=== PATIENT | female | born 1965 | race Caucasian/White ===

== ENCOUNTER 2022-11-30 07:17 | Outpatient (REF) | payer MEDICARE, MEDICAID, SELFPAY ==
--- NOTE | ~2022-11-30 | XR_ITS ---
EXAMINATION: XR KNEE, LEFT CLINICAL INFORMATION: Left knee pain. COMPARISON: None available. TECHNIQUE: Three views of the left knee. FINDINGS: Bones have normal alignment. No acute fracture, subluxation or joint effusion. Tricompartmental osteophyte formation. There is mild narrowing of patellofemoral joint space and tkrw-xo-kbczzyxb narrowing of the medial aspect of the medial tibiofemoral joint space. There appear to be a few small intra-articular ossific bodies. XR/XR knee LT 3V IMPRESSION: * No acute osseous injury at the left knee. * Tricompartmental osteoarthritis of the left knee. The joint degeneration is bolo-it-jwwjrkkd at the medial tibiofemoral compartment and mild at other compartments.
== END 2022-11-30 07:18 | disposition home or self-care (01) ==
LOC: HO.HOSX 07:17
PROVIDERS: Visit Provider Orthopaedic Surgery
DX: M17.0 Bilateral primary osteoarthritis of knee (principal); Z79.899 Other long term (current) drug therapy
CPT/HCPCS: 73562; 99212

== ENCOUNTER 2022-11-30 14:12 | Outpatient (AMB) | payer MEDICARE, MEDICAID, SELFPAY ==
--- NOTE | 2022-11-30 14:31 | MHC.OFFVIS ---
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 Pandey is a 57-year-old white female who presents with complaints of progressively worsening bilateral knee pains and giving way. She describes her pain as sharp in nature. Most of the pain is along the medial aspect of her knees. She has done physical therapy exercises which aggravated her pain. Her symptoms have gotten worse over the last year in spite of continued non operative treatments. She has tried Tylenol and anti-inflammatory medicines which gave her minimal relief. She has also tried tramadol which gives her fairly good relief. She would like to avoid surgery for as long as possible. The patient states that both of her knees will give out several times per day. Allergies bee stings Allergy (Uncoded 11/30/22 14:32) Anaphylaxis Medication List - Last Reconciled 11/30/22 by Faisal Schroeder MD albuterol sulfate 90 mcg/actuation (Ventolin HFA) 2 puffs inhalation Q4H PRN cetirizine 10 mg PO DAILY cholecalciferol (vitamin D3) 50 mcg PO DAILY duloxetine 60 mg PO BID epinephrine 0.3 mL IM ONCE PRN lamotrigine 100 mg PO BID lamotrigine 50 mg PO DAILY levothyroxine 75 mcg PO DAILY loratadine 10 mg PO DAILY montelukast 10 mg PO DAILY omeprazole 20 mg PO BID sennosides (senna) 34.4 mg PO BID PFSH Surgical History (Updated 11/30/22 @ 14:37 by Ngoc Estes CMA) History of total right knee replacement S/P left knee arthroscopy Physical Exam Vital Signs: BMI result Body Mass Index 39.0 Const Other: Well-nourished well-developed very friendly female awake alert and oriented x3 in no acute distress Extrem Other: Bilateral lower extremity examination shows good capillary refill, no skin lesions noted, normal sensation light touch Bilateral knee examination shows a minimal effusion, minimal crepitus with range of motion, tenderness along her medial joint lines, positive Yoli's test Results Reviewed Results Reviewed: X-rays of the patient's left knee show moderate diffuse joint space narrowing, Assessment & Plan Assessment & Plan (1) Arthritis of both knees: Code(s): M17.0 - Bilateral primary osteoarthritis of knee Plan Ms. Stone presents with bilateral knee pains and mechanical symptoms due to degenerative joint disease as well as possible tearing of her medial menisci. I had a lengthy discussion with the patient regarding the treatment options. She wishes to hold off on surgery for as long as possible. I agree with this plan. I did refill her prescription for tramadol. I also had her fitted for bilateral knee braces. I do feel that the knee braces are a medical necessity to help prevent injury during her episodes of instability. The patient will follow up with me on an as-needed basis should her symptoms not plateau at an unacceptable level over the next few months. Feel free to call me at any time should questions regarding her orthopedic management arise. I spent 22 minutes in reviewing the patient's records and imaging studies, seeing the patient and documenting in the medical record. Orders: Orders XR knee LT 3V Today M25.562 - Pain in left knee Medications: New tramadol 100 mg (2 x 50 mg) PO Q6H PRN 120 tabs 0RF pain Coding Level of Care Code Est Pt Level 2 (36432) Diagnoses Arthritis of both knees M17.0
[2022-11-30 14:38] VITALS: BMI 39.0
== END 2022-11-30 15:30 | disposition home or self-care (01) ==
PROVIDERS: PCP Family Medicine; Visit Provider Orthopaedic Surgery
DX: M17.0 Bilateral primary osteoarthritis of knee (principal)
CPT/HCPCS: 99212

== ENCOUNTER 2023-06-14 15:23 | Outpatient (REF) | payer MEDICARE, MEDICAID, SELFPAY | END 2023-06-14 15:24 | disposition home or self-care (01) | LOC: HO.HOSX 15:23 | PROVIDERS: Visit Provider Orthopaedic Surgery | DX: Z13.89 Encounter for screening for other disorder (principal) ==

== ENCOUNTER 2024-03-20 10:44 | Outpatient (REF) | payer MEDICARE, MEDICAID, SELFPAY | END 2024-03-20 10:45 | disposition home or self-care (01) | LOC: HO.HOSX 10:44 | PROVIDERS: Visit Provider Orthopaedic Surgery | DX: M25.561 Pain in right knee (principal) | CPT/HCPCS: 99212 ==

== ENCOUNTER 2024-03-20 14:43 | Outpatient (AMB) | payer MEDICARE, MEDICAID, SELFPAY ==
[2024-03-20 14:47] VITALS: BMI 39.0
--- NOTE | 2024-03-20 14:47 | A.OFFVIS_ITS ---
Vital Signs 03/20/24 14:47 Height 5 ft 2 in Weight 213 lb BMI 39.0 Intake Visit Reasons: Right knee pain Intake Note: Margarita is a 57-year-old female who presents with complaints of intermittent discomfort along the anterior aspect of her right knee. She did undergo right total knee replacement surgery several years ago. She denies any fevers or chills. She continues with her home exercise program. She denies any locking or giving way. Allergies bee stings Allergy (Uncoded 03/20/24 14:47) Anaphylaxis Medication List - Last Reconciled 03/21/24 by Faisal Schroeder MD albuterol sulfate 90 mcg/actuation (Ventolin HFA) 2 puffs inhalation Q4H PRN cetirizine 10 mg PO DAILY cholecalciferol (vitamin D3) 50 mcg PO DAILY duloxetine 60 mg PO BID epinephrine 0.3 mL IM ONCE PRN gabapentin 300 mg PO BID ibuprofen 800 mg PO TID PRN lamotrigine 100 mg PO BID lamotrigine 50 mg PO DAILY levothyroxine 75 mcg PO DAILY loratadine 10 mg PO DAILY montelukast 10 mg PO DAILY omeprazole 20 mg PO BID sennosides (senna) 34.4 mg PO BID tramadol 100 mg (2 x 50 mg) PO Q6H PRN PFSH Surgical History (Updated 11/30/22 @ 14:37 by Ngoc Estes CMA) S/P left knee arthroscopy History of total right knee replacement Physical Exam Vital Signs: BMI result Body Mass Index 39.0 Const Other: Well-nourished well-developed very friendly female awake alert and oriented x3 in no acute distress Extrem Other: Bilateral lower extremity examination shows good capillary refill, no skin lesions noted, normal sensation light touch Right knee examination shows that the surgical incision is well healed, no erythema, full active extension and flexion to 120 degrees, her patella tracks well, no instability, mild tenderness to palpation along her incision Assessment & Plan Assessment & Plan (1) Right knee pain: Code(s): M25.561 - Pain in right knee Category: Medical Plan Ms. Pandey presents with continued discomfort in her right knee after undergoing right total knee replacement surgery possibly due to scar tissue formation versus incisional sensitivity. Thus, I will refer her to Dr. Ecsalante in our pain management department here at [facility] for possible nerve block injections. The patient does know to take antibiotics before any dental work. She will contact me prior to her follow-up appointment in 3 months should her symptoms worsen in any way. Feel free to call me at any time should questions regarding her orthopedic management arise. I spent 21 minutes in reviewing the patient's records and imaging studies, seeing the patient and documenting in the medical record. Orders: Orders XR knee LT 3V 03/20/24 M25.562 - Pain in left knee XR knee RT 3V 03/20/24 M25.561 - Pain in right knee Referrals Pain Management Referral M25.561 - Pain in right knee Coding Level of Care Code Est Pt Level 3 (70233) Complex EM visit Add On G2211 Diagnoses Right knee pain M25.561
--- OUTSIDE RECORDS SUMMARY | 2024-03-20 14:47 | XMS_ITS | Data Portability ---
Author Organization [place] [facility] [address] [place] Address [address] [place] [address] Care Team Providers Care Loan Teller Name Role Phone NICOLAS MULLINS Primary Care Provider Assessment Encounter Date Assessment Date Assessment LastModified by Organization Details LastModified Time 07/02/2022 07/02/2022 Ms. Pandey presents with progressively worsening left knee pain due to end-stage degenerative joint disease. I had a lengthy discussion with the patient regarding the treatment options. At this point she has failed continued nonoperative treatments. The risks and benefits of left total knee replacement surgery were discussed at length with the patient. We had a discussion regarding implants and bearing options. We have a detailed discussion of the advantages and limitations of the specific implant designs, materials and bearing surfaces. All questions were answered to the patient's satisfaction. The patient wishes to proceed with surgery. Because of patient's symptoms are severe and intractable we will schedule her surgery for as soon as possible. Coronavirus precautions will be taken. I will see the patient back 1 week prior to her surgery to answer any final questions that she might have. The patient will follow-up as instructed. [email or web address] Not available 07/02/2022 16:09:28 10/18/2022 10/18/2022 Patient presented to the office with hopes of seeing Dr. Gallegos. She was given Dr. Gallegos's contact as being [facility]. She was offered evaluation and assessment in this orthopedic office but declined. She wishes to reach out to Dr. Gallegos for follow-up. There will be no charge for today's office encounter. There were no evaluation or management services provided today. [email or web address] Not available 10/19/2022 09:00:34 03/09/2024 03/09/2024 HPI : Patient is here for about 3-year follow-up from right revision total knee replacement. She is coming in because she reports that sometimes it is difficult to lift her leg to get into the car. She reports some locking in the knee. When she described the motion that she is having issues with there is really hip motion. She recognizes this now. The knee is moving mostly seamlessly. There is occasional slight catching but this is not particularly painful. Physical Exam : Patient is well nourished, well-developed, in no acute distress, with appropriate mood and affect. The patient is oriented to time, place, and person. Respirations are even and unlabored. There is no inguinal adenopathy. Examination of the contralateral knee shows normal range of motion, strength, no tenderness, and intact skin. The affected limb is well-perfused, with well healed skin incision. The patient demonstrates good knee motion, stability, and strength. The knee moves from 0-130 degrees. The alignment of the knee is neutral. Muscle strength is normal. Pedal pulses are palpable. There is some pain with internal rotation of the right hip. Assessment/Plan : This patient is functioning well 3 years after right revision total knee replacement. Continue knee conditioning exercises. Aeox-xtw-yuqwvst medications as needed. Ultimate failure may occur due to mechanical wear, loosening or breakage. Follow-up is recommended to assess for the possibility of failure. We did discuss that she likely has hip issues. If this continues she is welcome to be evaluated by her team for her right hip. She states she is seeing somebody else for her right hip. She can follow-up with me in 1 year from now with repeat x-rays of the right knee at that time. Not available 03/09/2024 15:05:30 Plan of Treatment Reminders Order Date Submit Date Provider Last Modified By Organization Details Last Modified Time Details Appointments FOLLOW UP 2024 02:00P Haroon Aden MD Not available Not available Not available Lab None recorded . Referral None recorded . Procedures None recorded . Surgeries None recorded . Imaging XR, knee, 3 view 2023 024 [email or web address] [facility], [address], [address], [place], [address], 03/12/2024 06:48:31 Medication Orders None recorded . Patient TargetsNo targets recorded. Patient Instructions Encounter Date Encounter Id Patient Instructions Last Modified By Organization Details Last Modified Time 03/09/2024 [id number] AP, lateral, patellar view of the right knee demonstrate a right revision total knee replacement with components in appropriate position without any signs of hardware related complications. Not available 03/09/2024 15:05:42 Reason for Referral None Reported. Problems Name Problem SNOMED Code Status Onset Date Resolution Date Notes Provider Name and Address Organization Details Recorded Time Osteoarthri tis of left knee joint 4326609863155 09 Active 2022 Faisal Schroeder MD [address], [place], [address], [place] [facility] 3 14:43:20 Arthritis of left knee 6903722521709 104 Active 2022 Faisal Schroeder MD [address], [place], [address], [place] [facility] 3 16:05:31 Pain of right knee joint 8089359292280 00 Active 2022 Faisal Schroeder MD [address], [place], [address], [place] [facility] 3 16:20:32 Pain of left knee joint 3127454467779 07 Active 2022 Faisal Schroeder MD [address], [place], [address], [place] [facility] 3 16:21:00 Problem Notes None recorded. Procedures Surgical History Date Name Laterality Status Provider Name and Address Organization Details Recorded Time Total knee arthroplasty completed Farzana Zhao [place] [facility] 07/02/2022 14:07:55 Imaging Results None recorded. Procedure Notes None recorded. Medical Equipment None Reported. Allergies Allergen ID Allergen Name Allergen Category Reaction Reaction Severity Criticality Documentation Date Start Date Code Code System Note Provider Name and Address Organization Details Recorded Time 1322 Substance with sulfonami de structure and antibacte rial mechanism of action (substanc e) medicatio n Not available Not available Not available 07/02/2022 80499 8003 SNOMED Farzana Zhao null, [place] [facility] 3 14:05:03 1323 Medicinal product containin g cephalosp huber and acting as antibacte rial agent (product) medicatio n Not available Not available Not available 07/02/2022 40052 9009 SNOMED Farzana Zhao null, [place] [facility] 3 14:05:13 1324 fentanyl medicatio n Not available Not available Not available 07/02/2022 4337 RxNorm Farzana Zhao null, [place] [facility] 3 14:05:23 1325 amiodaron e medicatio n Not available Not available Not available 07/02/2022 703 RxNorm Farzana Zhao null, [place] [facility] 3 14:05:30 1326 Dilaudid medicatio n Not available Not available Not available 07/02/2022 30603 3 RxNorm Farzana Zhao null, [place] [facility] 3 14:05:37 1327 trimethop rim medicatio n Not available Not available Not available 07/02/2022 34789 RxNorm Farzana Zhao null, [place] [facility] 14:05:51 Medications Name Sig Start Date Stop Date Status Note LastModified by Organization Details LastModified Time doxycycline hyclate 100 mg capsule active Not Available Not Available N ot Available cetirizine 10 mg tablet TAKE 1 TABLET (10 MG) BY MOUTH DAILY. active Not Available Not Available No t Available ibuprofen 800 mg tablet TAKE 1 TABLET BY MOUTH THREE TIMES A DAY NEEDED FOR PAIN active Not Available Not Available No t Available valacyclovi r 1 gram tablet TAKE 1 TABLET (1000 MG) ORALLY THREE TIMES A DAY FOR 7 DAYS 03/09 completed Not Available Not Available Not Available hydrocodone 5 mg-acetamin ophen 325 mg tablet TAKE 1 TABLET BY MOUTH 3 TIMES A DAY NEEDED FOR PAIN FOR 3 DAYS active Not Available Not Available No t Available senna 8.6 mg tablet TAKE 4 TABLETS BY MOUTH TWICE A DAY FOR 90 DAYS 03/09 completed Not Available Not Available Not Available ondansetron HCl 4 mg tablet TAKE 1 TABLET BY MOUTH EVERY 8 HOURS NEEDED FOR NAUSEA AND VOMITING FOR 4 DAYS 03/09 completed Not Available Not Available Not Available prednisone 20 mg tablet 40 MG (2 X 20 MG) ORALLY DAILY FOR 5 DAYS 03/09 completed Not Available Not Available Not Available topiramate 25 mg tablet PLEASE SEE ATTACHED FOR DETAILED DIRECTION S active Not Available Not Available No t Available tramadol 50 mg tablet TAKE 2 TABLETS BY MOUTH EVERY 6 HOURS NEEDED FOR PAIN active Not Available Not Available No t Available lamotrigine 25 mg tablet TAKE 1 TABLET BY MOUTH TWICE A DAY active Not Available Not Available No t Available levothyroxi ne 75 mcg tablet TAKE 1 TABLET (75 MCG) ORALLY DAILY active Not Available Not Available No t Available lorazepam 0.5 mg tablet TAKE 1 TABLET BY MOUTH ONCE A DAY NEEDED FOR AIR TRAVEL 03/09 completed Not Available Not Available Not Available amitriptyli ne 10 mg tablet 10 MG ORALLY THREE TIMES A DAY active Not Available Not Available No t Available baclofen 10 mg tablet TAKE 1 TABLET ORALLY THREE TIMES A DAY NEEDED FOR MUSCLE SPASM active Not Available Not Available No t Available benzonatate 100 mg capsule TAKE 1 CAPSULE BY MOUTH 3 TIMES A DAY NEEDED FOR COUGH active Not Available Not Available No t Available gabapentin 300 mg capsule TAKE 1 CAPSULE BY MOUTH TWICE A DAY active Not Available Not Available No t Available omeprazole 20 mg capsule,del ayed release TAKE 1 CAPSULE BY MOUTH TWICE A DAY active Not Available Not Available No t Available montelukast 10 mg tablet TAKE 1 TABLET (10 MG) BY MOUTH DAILY. active Not Available Not Available No t Available mupirocin 2 % topical ointment APPLY TOPICALLY TWICE A DAY active Not Available Not Available No t Available epinephrine 0.3 mg/0.3 mL injection, auto-inject or INJECT 1 PEN INTRAMUSC ULARLY ONE TIME FOR ANAPHYLAX IS AND CALL 911. MAY REPEAT ONE TIME active Not Available Not Available No t Available ibuprofen 600 mg tablet 600 MG ORALLY THREE TIMES A DAY NEEDED FOR PAIN active Not Available Not Available No t Available methylpredn isolone 4 mg tablets in a dose pack TAKE 6 TABLETS ON DAY 1 DIRECTED ON PACKAGE AND DECREASE BY 1 TAB EACH DAY FOR A TOTAL OF 6 DAYS active Not Available Not Available No t Available albuterol sulfate HFA 90 mcg/actuati on aerosol inhaler TAKE 2 PUFFS BY MOUTH EVERY 4 HOURS NEEDED active Not Available Not Available No t Available fluticasone propionate 50 mcg/actuati on nasal spray,suspe nsion 1-2 SPRAYS EACH NOSTRIL EVERY DAY 03/09 completed Not Available Not Available Not Available lamotrigine 100 mg tablet TAKE 1 TABLET BY MOUTH TWICE A DAY active Not Available Not Available No t Available loratadine 10 mg tablet TAKE 1 TABLET BY MOUTH EVERY DAY active Not Available Not Available No t Available diazepam 5 mg tablet PLEASE SEE ATTACHED FOR DETAILED DIRECTION S 03/09 completed Not Available Not Available Not Available oxycodone 5 mg tablet PLEASE SEE ATTACHED FOR DETAILED DIRECTION S active Not Available Not Available No t Available topiramate 50 mg tablet TAKE 1 TABLET BY MOUTH TWICE A DAY active Not Available Not Available No t Available duloxetine 60 mg capsule,del ayed release TAKE 1 CAPSULE BY MOUTH TWICE A DAY active Not Available Not Available No t Available Symbicort 80 mcg-4.5 mcg/actuati on HFA aerosol inhaler INHALE 2 PUFFS BY MOUTH TWICE A DAY FOR 90 DAYS 03/09 completed Not Available Not Available Not Available cholecalcif shiela (vitamin D3) 50 mcg (2,000 unit) capsule TAKE 1 CAPSULE BY MOUTH EVERY DAY active Not Available Not Available No t Available GaviLyte-G 236 gram-22.74 gram-6.74 gram-5.86 gram oral solution 240 ML ORALLY ONCE USE DIRECTED active Not Available Not Available No t Available lidocaine 5 % topical ointment APPLY TOPICALLY 4 TIMES DAILY NEEDED FOR PAIN 03/09 completed Not Available Not Available Not Available Wixela Inhub 250 mcg-50 mcg/dose powder for inhalation TAKE 1 PUFF BY MOUTH TWICE A DAY active Not Available Not Available No t Available Breztri Aerosphere 160 mcg-9mcg-4. 8mcg/actuat ion HFA aerosol inhaler TAKE 2 PUFFS BY MOUTH TWICE A DAY active Not Available Not Available No t Available Trelegy Ellipta 200 mcg-62.5 mcg-25 mcg powder for inhalation TAKE 1 PUFF BY MOUTH EVERY DAY active Not Available Not Available No t Available BinaxNOW COVID-19 Ag Self Test kit DIRECTED 03/09 completed Not Available Not Available Not Available Vitals Date Recorded Body height Body mass index (BMI) Body weight Provider Name and Address Organization Details Last Updated DateTime 10/18/2022 152.4 cm 41.8 kg/m2 [address] [place] [facility] 10/18/2022 14:54:43 Date Recorded Body height Body mass index (BMI) Body weight Provider Name and Address Organization Details Last Updated DateTime 07/02/2022 152.4 cm 41.8 kg/m2 [address]4527.[address] [place] [facility] 07/02/2022 14:06:21 Social History None recorded. Functional Status None recorded. Mental Status None recorded. Family History Relationship Description Onset Age of this Age Resolved Age Notes LastModified by Organization Details LastModified Time Father Heart disease [email or web address] Not available 2022 14:07:19 Mother Heart disease [email or web address] Not available 2022 14:07:29 Brother Heart disease [email or web address] Not available 2022 14:07:34 Medical History Condition Response Bleeding Disorder Y Asthma Y Gynecological HistoryNo gynecological history recorded. Obstetrics History GPAL:G 0 P 0 0 0 0 Past Encounters Encounter ID Performer Location Encounter Start Date Encounter Closed Date Diagnosis/Indication Diagnosis SNOMED-CT Code Diagnosis ICD10 Code [id number] MD GERRY Toro [address] [facility] [address] [place] [address] 07/02/2022 13:58:47 07/02/2022 14:52:34 Osteoarthritis of left knee joint [id number] 68018 M17.12 [id number] MD GERRY Zuñiga [address] [facility] [address] [place] [address] 10/18/2022 14:41:29 10/19/2022 09:00:49 [id number] MD GERRY Zuñiga [address] [facility] [address] [place] [address] 03/09/2024 14:29:57 03/09/2024 15:10:38 History of right total knee replacement [id number] 515567 Z96.651 Surgical follow-up 92603 4000 Z47.1 Z96.651 Health Concerns Section Related Observation LastModified by Organization Detai ls LastModified Time None Recorded Concern Status LastModified by Organization Details LastModified Time None Recorded Advance Directives Directive None Recorded Payers Encounter Date Sequence Insurance Name Policy Number Policy Castellon Covered Member ID Castellon Member ID Guarantor Name 07/02/2022 1 [place] [employer] Margarita A Stone [id number] Margarita Stone 07/02/2022 2 [place] Margarita A Stone [id number] Margarita Stone 10/18/2022 1 [place] Margarita A Stone [id number] Margarita Stone 10/18/2022 2 [place] Margarita A Stone [id number] Margarita Stone 03/09/2024 1 [place] [employer] Margarita A Stone [id number] Margarita Stone 03/09/2024 2 [place] Margarita A Stone [id number] Margarita Stone Notes Date Note Type Note Provider Name and Address Organization Details Recorded Time 07/02/2022 text/html The patient presents with complaints of progressively worsening left knee pain. She describes her pain as sharp and severe in nature, 10 out of 10. Her pain has gotten worse over the last few years in spite of continued nonoperative treatments. She did undergo right total knee replacement surgery on February 09, 2019. She subsequently underwent revision right total knee replacement surgery after loosening her total knee arthroplasty while jumping on a trampoline. She reports minimal discomfort in her right knee. She describes her left knee pain as sharp and severe in nature. She has had multiple injections given into her left knee. The most recent injection gave her minimal relief. She has also done physical therapy for 12 weeks over the last 6 months which aggravated her pain. She has tried Tylenol, anti-inflammatory medicines and tramadol which gave her minimal relief. The patient has difficulty walking even short distances because of her pain. At this point her left knee pain is interfering with her activities of daily living and her ability to sleep well through the night. Faisal Schroeder MD [address] [place] [address], [address], [place] [facility] 07/02/2022 16:09:35 OBGyn Episode No OBEpisode recorded.
--- OUTSIDE RECORDS SUMMARY | 2024-03-20 14:47 | XMS_ITS | Continuity of Care Document ---
Author Organization [facility] Address [address] [place], [place] [address], [address] [place] [address]- Care Team Providers Care Coating Inspector Name Role Phone Fe Mcnally DO [facility] Care Phys[id number]): [facility]24[facility]23 - 02/24/24 [facility] [address] [place] [address] Drive [address] [place], [place] [address] Attending Physician: Gianni PALUMBO, Faraz Lomeli Referring Physician: Jerri Carmona NP Encounter Type: Pre Office Visit Allergies, Adverse Reactions, Alerts Substance Criticality Severity Reaction Reaction Severity Status amiodarone Amoxycillin allergy Active ciprofloxacin Active Bee Stings Active Flagyl can't talk or h old head up Active metronidazole Active sulfADIAZINE Active cephalosporins Activ e Dilaudid Active Lyrica Active trimethoprim Active vancomycin Active fentanyl Active morphine black & blue Active Bactrim itchy Active Medications Ativan 1 mg oral tablet 1 tablet = 1 mg, By Mouth, 3 times a day, prn spasm, # 12 tablet, 0 Refills, Maintenance, 11/19/15 5:09:02 PM EDT Start Date: 11/19/15 Stop Date: 11/22/15 Status: Ordered Quantity: 12.0 Unit: tablet Repeat number: 1 Cane See Instructions, # 1 each, Refills 0, Tot. Refills 0, Maintenance, Use Cane as Directed for your hip contusion, 11/19/15 5:13:34 PM EDT, Compound Start Date: 11/19/15 Status: Ordered Quantity: 1.0 Unit: each Repeat number: 1 Cymbalta 60 mg oral enteric coated capsule 1 capsule = 60 mg, By Mouth, 2 times a day, 0 Refills, Maintenance, 12/24/16 2:20:39 PM EDT Start Date: 12/24/16 Status: Ordered Repeat number: 1 docusate sodium 100 mg oral tablet 1 tablet = 100 mg, By Mouth, 2 times a day, PRN for constipation, # 100 tablet, 0 Refills, Maintenance, 04/28/12 2:02:25 PM EST, Tablet Start Date: 04/28/12 Status: Ordered Quantity: 100.0 Unit: tablet Repeat number: 1 Gabapentin By Mouth, 0 Refills, Maintenance, 12/14/22 3:22:00 PM EDT, Partial fill upon patient request if the prescription is for a schedule II opioid drug. Start Date: 12/14/22 Status: Ordered Repeat number: 1 Hydrochlorothiazide = 25 mg, By Mouth, Daily, 0 Refills, Maintenance, 04/28/12 6:45:11 PM EST Start Date: 04/28/12 Status: Ordered Repeat number: 1 Knee Immobilizer See Instructions, # 1 units, Maintenance, R knee injury, 10/27/14 11:45:15 AM EDT, Compound Start Date: 10/27/14 Status: Ordered Quantity: 1.0 Unit: Units Repeat number: 1 lamotrigine 100 mg oral tablet 1 tablet = 100 mg, By Mouth, 2 times a day, # 180 tablet, 0 Refills, Maintenance, 04/28/12 1:57:32 PM EST, Tablet Start Date: 04/28/12 Status: Ordered Quantity: 180.0 Unit: tablet Repeat number: 1 lamotrigine 25 mg oral tablet 1 tablet = 25 mg, By Mouth, 2 times a day, # 180 tablet, 0 Refills, Maintenance, 04/28/12 1:58:10 PMEST, Tablet Start Date: 04/28/12 Status: Ordered Quantity: 180.0 Unit: tablet Repeat number: 1 levothyroxine 0.025 mg oral tablet 1 tablet = 25 mcg, By Mouth, Daily, 0 Refills, Maintenance, 12/14/22 3:22:00 PM EDT, Partial fill upon patient request if the prescription is for a schedule II opioid drug. Start Date: 12/14/22 Status: Ordered Repeat number: 1 Montelukast By Mouth, Daily, 0 Refills, Maintenance, 12/14/22 3:21:00 PM EDT, Partial fill upon patient request if the prescription is for a schedule II opioid drug. Start Date: 12/14/22 Status: Ordered Repeat number: 1 omeprazole 20 mg oral enteric coated capsule 1 capsule = 20 mg, By Mouth, Daily, # 30 capsule, 0 Refills, Maintenance, 04/28/12 1:58:47 PM EST, EC Capsule Start Date: 04/28/12 Status: Ordered Quantity: 30.0 Unit: capsule Repeat number: 1 traMADol 50 mg oral tablet 1 tablet = 50 mg, By Mouth, Every 4 hours, 0 Refills, Maintenance, 12/24/16 2:23:32 PM EDT Start Date: 12/24/16 Status: Ordered Repeat number: 1 Problem List Condition Confirmation Course Effective Dates Status H ealth Status Informant Bipolar disorder Confirmed Active Bursitis of left hip Confirmed Active Foot pain, right Confirmed Active H/O arthroscopic knee surgery Confirmed Active H/O hernia repair Confirmed Active Hx of repair of right rotator cuff Confirmed Active Hx of sleep apnea Confirmed Active Knee pain Confirmed Active Laparoscopic Cholecystectomy Confirmed Active Low back pain Confirmed Active Myofascial pain Confirmed Active Obese class II Confirmed Active Obesity (BMI 30-39.9) Confirmed Active Osteoarthritis Confirmed Active Social History Social History Type Response Smoking Status Never smoker entered on: 05/18/17 Sex Sex Representation Female (finding) Patient Care team information Care Team Personnel Name: Fe Mcnally DO Position: Reference Physician Member Role: PCP Address: [address] [place] [address] Internal Medicine MADDI Hernandez [address] [place] [address] Telecom: Care Team Related Persons Name: TONO ENRIQUEZ Insurance Providers Guarantor name: BOLA ENRIQUEZ Health Plan Information #: 2 Payer: [facility] MC[facility] ADV Member Number: [id number] Policy Number: NA Group Number: NA Health Plan Information #: 3 Payer: [employer] Member Number: [id number] Policy Number: NA Group Number: NA Health Plan Information #: 5 Payer: [facility] Member Number: [id number] Policy Number: NA Group Number: NA Health Plan Information #: 1 Payer: MEDICARE PART B OUTPT Member Number: [id number] Policy Number: NA Group Number: NA Health Plan Information #: 4 Payer: MEDICARE PART B OUTPT Member Number: [id number] Policy Number: NA Group Number: NA
--- OUTSIDE RECORDS SUMMARY | 2024-03-20 14:47 | XMS_ITS | Continuity of Care Document ---
Author Organization [facility] Address [address] [place], [place] [address], [address] [place] [address]- Care Team Providers Care Heliotherapist Name Role Phone Fe Mcnally DO Primary Care Physician Encounter [facility] Date(s): 01/25/24 - 02/24/24 [facility] [address] [place] [address] Drive [address] [place], [place] [address] Attending Physician: Jarrod Mckeon Admitting Physician: Jarrod Mckeon Referring Physician: AdmtrJarrod Encounter Type: Triage Allergies, Adverse Reactions, Alerts Substance Criticality Severity Reaction Reaction Severity Status amiodarone Amoxycillin allergy Active ciprofloxacin Active metronidazole Active sulfADIAZINE Active trimethoprim Active vancomycin Active fentanyl Active morphine black & blue Active cephalosporins Activ e Flagyl can't talk or h old head up Active Dilaudid Active Bactrim itchy Active Bee Stings Active Lyrica Active Medications Ativan 1 mg oral tablet [...] Position: Reference Physician Member Role: PCP Address: [address] [place] [address] Internal Medicine [address] Telecom: Care Team Related Persons Name: TONO ENRIQUEZ Insurance Providers Guarantor name: BOLA MINA Health Plan Information #: 1 Payer: MEDICARE PART B OUTPT Member Number: NA Policy Number: NA Group Number: NA Health Plan Information #: 2 Payer: [employer] Member Number: NA Policy Number: NA Group Number: NA
--- OUTSIDE RECORDS SUMMARY | 2024-03-20 14:47 | XMS_ITS | Data Portability ---
Author Organization [place] [facility] Quality Assurance Specialist Address [address] [place] [address] Assessment Encounter Date Assessment Date Assessment LastModified by Organization Details LastModified Time 04/22/2023 04/22/2023 Reason for Encounter Removeable Prosthesis Encounter Date: 04/22/2023 Problems Problems reviewed by: Christina Mello Problems reviewed on: 04/22/2023 10:07 am Allergies No known drug allergies Allergies reviewed by: Christina Mello Allergies reviewed on: 04/22/2023 10:07 am Medications No medications reported Completed Procedures D0140 - Limited oral evaluation - problem focused Completed Procedures (cont.) Pt presents for limited exam.Medical and dental hx reviewed. ?? CC. : severe constant pain in lower RIGHT BACK teeth, pointing to tooth # 32 that was rec to be extracted. PANO Interpreted showing mesial impacted, partially erupting?? Clinical exam reveals only mesial cusp erupting. Tender to palpation and percussion. Possible acute pericorornitis Rec following up on referral with MK for?? EXT. Pt wants to have the teeth extracted.Pt was dimissed in good condition with no complications from today's Tx. ?? ALSO COMPLETED WASH IMP FOR UPPER CD, UNABLE TO POSITION LOWER BITE BLOCK TO REGISTER THE BITE. PT WILL RETURN AFTER EXT FOR BITE REG. CASE STORED IN CABINET. Additional Comments: Explained and discussed conditions, findings, and plan of care. Follow-Up/Next Visit: Next appointment date is 07/06/2023 at 10:00 AM Treating Provider: Evelyn STOKES Reason For Encounter: Restorations Treating Provider DIVYA Martinez I attest that the treatment rendered today is completed and treatment met the standard of care. , 12:14 PM. [id number] Not available 04/25/2023 11:02:54 07/06/2023 07/06/2023 Reason for Encounter Removeable Prosthesis Encounter Date: 07/06/2023 Allergies No known drug allergies Medications No medications reported Completed Procedures D5212 - Mandibular partial denture - resin base (including any conventional clasps, rests and teeth) Teeth: 18, 19, 30, 31 Stages: Three D5110 - Complete denture - maxillary Stages: Three Completed Procedures (cont.) Patient presents for scheduled visit for bite registration.? Since last visit: Medical alert - No change ? Medications - No change ? Allergies - No change?? H&N exam - WNL, Extraoral and Intraoral soft tissues - WNL, OHI provided verbally. ?? Completel ?? edentulous maxilla, partilly edentulous mandible ? P: Bite registration taken with bill mezae. Midline recorded, smile line, and canine lines.? pt selected Shade:A2 pt dismissed in stable condition?? NV: Wax Try-in ? Additional Comments: Explained and discussed conditions, findings, and plan of care. Follow-Up/Next Visit: Next appointment date is 08/03/2023 at 10:30 AM Treating Provider: Evelyn STOKES Reason For Encounter: Recare Adult Treating Provider DIVYA Martinez I attest that the treatment rendered today is completed and treatment met the standard of care. , 11:48 AM. [id number] Not available 07/13/2023 11:56:41 08/03/2023 08/03/2023 Reason for Encounter Removeable Prosthesis Encounter Date: 08/03/2023 Allergies No known drug allergies Medications No medications reported Completed Procedures D5212 - Mandibular partial denture - resin base (including any conventional clasps, rests and teeth) Teeth: 18, 19, 30, 31 Stages: Four D5110 - Complete denture - maxillary Stages: Four Completed Procedures (cont.) Patient presents for scheduled visit for a wax try-in.? H&N exam - WNL, Extraoral and Intraoral soft tissues - WNL, OHI provided verbally. ? Completely edentulous maxilla, partially edentulous mandible? Wax Try-in assessment, occlusion good, midline, good, pt likes the overall esthetics and look, pt did not want any changes done.?? Prosthetic consent reviewed and obtained.?? pt dismissed in stable condition?? Additional Comments:NV DELIVERY Explained and discussed conditions, findings, and plan of care. Follow-Up/Next Visit: Next appointment date is 08/30/2023 at 09:30 AM Treating Provider: Evelyn STOKES Reason For Encounter: Removeable Prosthesis Treating Provider DIVYA Martinez I attest that the treatment rendered today is completed and treatment met the standard of care. , 11:51 AM. [email or web address] Not available 08/05/2023 10:57:04 09/09/2023 09/09/2023 Reason for Encounter Removeable Prosthesis Encounter Date: 1:00 PM - 09/09/2023 Treating Provider: DIVYA Martinez Allergies Medications No medications reported Completed Procedures D0190 - Screening of a patient Completed Procedures (cont.)Pt presenst fro denture delivery. pt feels her dneture is making her bite off, will return to see provider to get the bite fixed if possible. Additional Comments: Explained and discussed conditions, findings, and plan of care. Follow-Up/Next Visit: Next appointment date is 09/12/2023 at 01:00 PM Treating Provider: Evelyn STOKES Reason For Encounter: Removeable Prosthesis Treating Provider DIVYA Martinez I attest that the treatment rendered today is completed and treatment met the standard of care. , 11:19 AM. [email or web address] Not available 09/29/2023 10:54:48 09/12/2023 09/12/2023 Pt is not happy with the bite of her FU denture at delivery though she has completed consent for try in as well.pt shifts her bite to left. today after pt declined the denture redid the bite reg and sent the bite reg for try in for FU to lab and then lower RPD try in was used as guide for bite reg . if lab is able to make a new try in for FU then both upper and lower dentures will be sent for fabrication together. I attest that the treatment rendered today is completed and treatment met the standard of care. , 4:45 PM. [email or web address] Not available 09/20/2023 08:48:31 Plan of Treatment Reminders Order Date Submit Date Provider Last Modified By Organization Details Last Modified Time Details Appointments Dental 30 2024 01:00P M DIVYA Hendrix Not available Not available Not available Lab None recorded . Referral None recorded . Procedures None recorded . Surgeries None recorded . Imaging None recorded . Medication Orders None recorded . Patient TargetsNo targets recorded. Patient InstructionsNo instructions recorded. Reason for Referral None Reported. Medical Equipment None Reported. Vitals None Recorded Social History None recorded. Functional Status None recorded. Mental Status None recorded. Family History Nothing Reported. Medical History No medical history recorded. Gynecological HistoryNo gynecological history recorded. Obstetrics History GPAL:G 0 P 0 0 0 0 Past Encounters Encounter ID Performer Location Encounter Start Date Encounter Closed Date Diagnosis/Indication Diagnosis SNOMED-CT Code Diagnosis ICD10 Code [id number] [address] [address] 12/07/2022 14:05:56 12/17/2022 13:39:[id number] [address] 02/16/2023 10:04:10 02/17/2023 10:42:[id number] [address] 03/08/2023 13:26:03 03/09/2023 12:19:28 [id number] [facility] [address] [facility] [place] [address] 04/22/2023 10:00:30 04/25/2023 11:02:58 [id number] [facility] [address] [place] [address] 07/06/2023 09:48:14 07/13/2023 11:56:45 [id number] [facility] [place] [address] [place] [address] 08/03/2023 10:28:38 08/05/2023 10:57:07 [id number] [facility] [place] [address] [place] [address] 09/09/2023 12:48:51 09/29/2023 10:54:52 [id number] [facility] [address] [place] [address] 09/12/2023 12:49:19 09/20/2023 08:48:36 Health Concerns Section Related Observation LastModified by Organization Detai ls LastModified Time None Recorded Concern Status LastModified by Organization Details LastModified Time None Recorded Advance Directives Directive None Recorded Payers Encounter Date Sequence Insurance Name Policy Number Policy Castellon Covered Member ID Castellon Member ID Guarantor Name 04/22/2023 *SELF PAY* Margarita Stone Margarita A Stone 04/22/2023 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) Margarita Stone [id number] Margarita A Stone 07/06/2023 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) Margarita Stone [id number] Margarita A Stone 07/06/2023 1 [place] [employer] Margarita A Stone [id number] Margarita A Stone 08/03/2023 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) Margarita Stone [id number] Margarita A Stone 08/03/2023 1 MEDIC[place]: [employer] Margarita A Stone [id number] Margarita A Stone 09/09/2023 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) Margarita Stone [id number] Margarita A Stone 09/09/2023 1 [place] [employer] Margarita A Stone [id number] Margarita A Stone 09/12/2023 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 Margarita Stone [id number] Margarita A Stone 09/12/2023 1 MEDICARE B-[place]: [facility] Margarita A Stone [id number] Margarita A Stone OBGyn Episode No OBEpisode recorded.
--- OUTSIDE RECORDS SUMMARY | 2024-03-20 14:48 | XMS_ITS ---
Author Name [facility] Organization Unknown History of Medication Use Medication Directions Dispensed Refills Start Date End Date Status valacyclovir 1 gram tablet TAKE 1 TABLET (1000 MG) ORALLY THREE TIMES A DAY FOR 7 DAYS 4 04/03/99 99 active baclofen 10 mg tablet TAKE 1 TABLET ORAL LY THREE TIMES A DAY NEEDED FOR MUSCLE SPASM 4 04/03/99 99 active doxycycline hyclate 100 mg capsule 4 04/03/99 99 active lidocaine 5 % topical ointment APPLY TOPICALLY 4 TIMES DAILY NEEDED FOR PAIN 4 04/03/99 99 active mupirocin 2 % topical ointment APPLY TOPICALLY TWICE A DAY 4 04/03/99 99 active hydrocodone 5 mg-acetaminophen 325 mg tablet TAKE 1 TABLET BY MOUTH 3 TIMES A DAY NEEDED FOR PAIN FOR 3 DAYS 4 04/03/99 99 active albuterol sulfate HFA 90 mcg/actuation aerosol inhaler TAKE 2 PUFFS BY MOUTH EVERY 4 HOURS NEEDED 4 04/03/99 99 active lorazepam 0.5 mg tablet TAKE 1 TABLET BY MOUTH ONCE A DAY NEEDED FOR AIR TRAVEL 3 active amitriptyline 10 mg tablet 10 MG ORALLY THREE TIMES A DAY 3 active montelukast 10 mg tablet 10 MG ORALLY DAILY 3 active cholecalciferol (vitamin D3) 50 mcg (2,000 unit) capsule 50 MCG ORALLY DAILY 02 3 active gabapentin 300 mg capsule PLEASE SEE ATTACHED FOR DETAILED DIRECTIONS 3 active ondansetron HCl 4 mg tablet TAKE 1 TABLET BY MOUTH EVERY 8 HOURS NEEDED FOR NAUSEA AND VOMITING FOR 4 DAYS 3 active levothyroxine 75 mcg tablet 75 MCG ORALLY DAILY 3 active tramadol 50 mg tablet TAKE 1 TABLET EVER Y 12 HOURS NEEDED FOR PAIN 3 active diazepam 5 mg tablet PLEASE SEE ATTACHED FOR DETAILED DIRECTIONS 3 active omeprazole 20 mg capsule,delayed release 20 MG ORALLY TWICE A DAY 3 active loratadine 10 mg tablet TAKE 1 TABLET BY MOUTH EVERY DAY 3 active Advair Diskus 250 mcg-50 mcg/dose powder for inhalation TAKE 1 PUFF BY MOUTH TWICE A DAY 3 active ibuprofen 600 mg tablet 600 MG ORALLY TH REE TIMES A DAY NEEDED FOR PAIN 3 active ondansetron HCl 4 mg tablet TAKE 1 TABLET BY MOUTH EVERY 8 HOURS NEEDED FOR NAUSEA AND VOMITING FOR 4 DAYS 3 active levothyroxine 75 mcg tablet 75 MCG ORALLY DAILY 3 active oxycodone 5 mg tablet PLEASE SEE APPLE PACKING HEADER D FOR DETAILED DIRECTIONS 3 active topiramate 50 mg tablet TAKE 1 TABLET BY MOUTH TWICE A DAY 3 active Breztri Aerosphere 160 mcg-9mcg-4.8mcg/actuati on HFA aerosol inhaler TAKE 2 PUFFS BY MOUTH TWICE A DAY 3 active Trelegy Ellipta 200 mcg-62.5 mcg-25 mcg powder for inhalation TAKE 1 PUFF BY MOUTH EVERY DAY 3 active benzonatate 100 mg capsule TAKE 1 CAPSULE BY MOUTH 3 TIMES A DAY NEEDED FOR COUGH 3 active ibuprofen 800 mg tablet TAKE 1 TABLET BY MOUTH 3 TIMES A DAY NEEDED FOR PAIN 3 active methylprednisolone 4 mg tablets in a dose pack TAKE 6 TABLETS ON DAY 1 DIRECTED ON PACKAGE AND DECREASE BY 1 TAB EACH DAY FOR A TOTAL OF 6 DAYS 3 active topiramate 25 mg tablet PLEASE SEE ATTAC HED FOR DETAILED DIRECTIONS 3 active duloxetine 60 mg capsule,delayed release TAKE 1 CAPSULE BY MOUTH TWICE A DAY 3 active cetirizine 10 mg tablet TAKE 1 TABLET (1 0 MG) BY MOUTH DAILY. 3 active epinephrine 0.3 mg/0.3 mL injection, auto-injector ADMINISTER 0.3 ML (0.3 MG) INTRAMUSCULARLY ONE TIME. MAY REPEAT ONE TIME 3 active senna 8.6 mg tablet TAKE 4 TABLETS BY MOUTH TWICE A DAY 3 active lamotrigine 25 mg tablet TAKE 1 TABLET BY MOUTH TWICE A DAY 3 active GaviLyte-G 236 gram-22.74 gram-6.74 gram-5.86 gram oral solution BY MOUTH ONCE USE DIRECTED 3 active lamotrigine 100 mg tablet TAKE 1 TABLET BY MOUTH TWICE A DAY 3 active Ventolin HFA 90 mcg/actuation aerosol inhaler TAKE 2 PUFFS BY MOUTH EVERY 4 HOURS NEEDED 3 active prednisone 20 mg tablet PLEASE SEE [facility] FOR DETAILED DIRECTIONS 3 active fluticasone propionate 50 mcg/actuation nasal spray,suspension 1-2 SPRAYS EACH NOSTRIL EVERY DAY 3 active Symbicort 80 mcg-4.5 mcg/actuation HFA aerosol inhaler INHALE 2 PUFFS BY MOUTH TWICE A DAY FOR 90 DAYS 3 active Allergies Allergen Reaction Severity Comment Documented Date Source Statu s TRIMETHOPRIM [facility] AMIODARONE [facility] SULFA (SULFONAMIDE ANTIBIOTICS) [facility] FENTANYL [facility] DILAUDID [facility] CEPHALOSPORINS [facility] Problems Problem Status Onset Date Problem Type Date of Resoluti on Source Osteoarthritis of left knee joint active 2022-07-02 ProblemAct [facility] Arthritis of left knee active 2022-07-02 ProblemAct [facility] Pain of left knee joint active 2022-06-22 ProblemAct [facility] Pain of right knee joint active 2022-06-22 ProblemAct [facility]
--- OUTSIDE RECORDS SUMMARY | 2024-03-20 14:48 | XMS_ITS | Continuity of Care Document ---
Author Organization [place] [facility] Jacques [place] Address [address] [facility] [address] [place] [address] Care Team Providers Care Roller Repairer Name Role Phone NICOLAS MULLINS Primary Care Provider Assessment Encounter Date Assessment Date Assessment LastModified by Organization Details LastModified Time 03/09/2024 03/09/2024 HPI : Patient is here [...] total knee replacement. Continue knee conditioning exercises. Tkgr-ojo-elkrxmd medications as needed. Ultimate failure may occur [...] Time Details Appointments FOLLOW UP 2024 02:00P M Andrea Aden MD Not available Not available Not available Lab None recorded . Referral None recorded . Procedures None recorded . Surgeries None recorded . Imaging XR, knee, 3 view 2023 024 [email or web address] [facility], [address], [address], [place], [address], 03/12/2024 06:48:31 Medication Orders None recorded . Patient TargetsNo targets recorded. Patient Instructions Encounter Date Encounter Id Patient Instructions Last Modified By Organization Details Last Modified Time 03/09/2024 [id number] AP, lateral, patellar view of the right knee demonstrate a right revision total knee replacement with components in appropriate position without any signs of hardware related complications. Not available 03/09/2024 15:05:42 Reason for Referral None Reported. Problems Name Problem SNOMED Code Status Onset Date Resolution Date Notes Provider Name and Address Organization Details Recorded Time Osteoarthri tis of left knee joint 4787117784726 09 Active 2022 Faisal Schroeder MD [address], [place], [address], [place] [facility], P 3 14:43:20 Arthritis of left knee 1192210623502 104 Active 2022 Faisal Schroeder MD [address], [place], [address], [place] - [facility], P 3 16:05:31 Pain of right knee joint 1104452234100 00 Active 2022 Faisal Schroeder MD [address], [place], [address], [place] - [facility], P 3 16:20:32 Pain of left knee joint 2342917315950 07 Active 2022 Faisal Schroeder MD [address] [facility], [place], [place], [address] [place] [address] - [facility], P 3 16:21:00 Problem Notes None recorded. Procedures Surgical History Date Name Laterality Status Provider Name and Address Organization Details Recorded Time Total knee arthroplasty completed [facility] [place] 07/02/2022 14:07:55 Imaging Results None recorded. [...] Not available Not available Not available 07/02/2022 38754 8003 SNOMED Farzana Zhao [facility], [facility] [place] 3 14:05:03 1323 Medicinal product containin g cephalosp huber and acting as antibacte rial agent (product) medicatio n Not available Not available Not available 07/02/2022 74686 9009 SNOMED Farzana Zhao null, [facility], P 3 14:05:13 1324 fentanyl medicatio n Not available Not available Not available 07/02/2022 4337 RxNorm Farzana Zhao null, [facility], P 3 14:05:23 1325 amiodaron e medicatio n Not available Not available Not available 07/02/2022 703 RxNorm Farzana Zhao null, [place] [facility], P 3 14:05:30 1326 Dilaudid medicatio n Not available Not available Not available 07/02/2022 33796 3 RxNorm Farzana Zhao null, [facility] [place], P 3 14:05:37 1327 trimethop rim medicatio n Not available Not available Not available 07/02/2022 62190 RxNorm Farzana Zhao null, [facility] [place] [facility], P 3 14:05:51 Medications Name Sig Start [...] completed Not Available Not Available Not Available Arian Inhub 250 mcg-50 mcg/dose powder for inhalation TAKE 1 PUFF BY MOUTH TWICE A DAY active Not Available Not Available No t Available Dayanara Aerosphere 160 mcg-9mcg-4. 8mcg/actuat ion HFA aerosol inhaler TAKE 2 PUFFS BY MOUTH TWICE A DAY active Not Available Not Available No t Available Pradeeplelatrell Ellipta 200 mcg-62.5 mcg-25 mcg powder for inhalation TAKE 1 PUFF BY MOUTH EVERY DAY active Not Available Not Available No t Available BinaxNOW COVID-19 Ag Self Test kit DIRECTED 03/09 completed Not Available Not Available Not Available Vitals None Recorded Social History None recorded. [...] Diagnosis/Indication Diagnosis SNOMED-CT Code Diagnosis ICD10 Code [id number] MD GERRY Zuñiga [address] [place] [address] 03/09/2024 14:29:57 03/09/2024 15:10:38 History of right total knee replacement [id number] 021612 Z96.651 Surgical follow-up 90913 4000 Z47.1 Z96.651 Health Concerns Section Related Observation LastModified by Organization Detai ls LastModified Time None Recorded Concern Status LastModified by Organization Details LastModified Time None Recorded Payers Encounter Date Sequence Insurance Name Policy Number Policy Castellon Covered Member ID Castellon Member ID Guarantor Name 03/09/2024 1 [place] [employer] Margarita Pandey [id number] Margarita Pandey 03/09/2024 2 [place] [facility] Margarita A Stone [id number] Margariat Stone OBGyn Episode No OBEpisode recorded.
== END 2024-03-20 15:17 | disposition home or self-care (01) ==
PROVIDERS: PCP Family Medicine; Visit Provider Orthopaedic Surgery
DX: M25.561 Pain in right knee (principal)
CPT/HCPCS: 99213; G2211

== ENCOUNTER 2024-06-12 06:55 | Outpatient (REF) | payer MEDICARE, MEDICAID, SELFPAY ==
--- NOTE | ~2024-06-12 | XR_ITS ---
EXAMINATION: XR KNEE 3 VIEWS RIGHT HISTORY: M25.561 - Pain in right knee COMPARISON: There are no prior studies available for comparison. FINDINGS: Three views of the right knee are submitted. The patient is status post total knee arthroplasty. The orthopedic elements are in anatomic alignment. There is no radiographic evidence of loosening. There is no fracture or dislocation. The soft tissues are unremarkable. XR/XR knee RT 3V IMPRESSION: Status post right total knee arthroplasty. Electronically signed by: Faraz Lazcano MD 06/13/2024 07:03 AM EDT
== END 2024-06-12 06:56 | disposition home or self-care (01) ==
LOC: HO.HOSX 06:55
PROVIDERS: Visit Provider Orthopaedic Surgery
DX: M25.561 Pain in right knee (principal)
CPT/HCPCS: 73562; 99212

== ENCOUNTER 2024-06-12 11:39 | Outpatient (AMB) | payer MEDICARE, MEDICAID, SELFPAY ==
--- NOTE | 2024-06-12 11:43 | A.OFFVIS_ITS ---
Intake Visit Reasons: OV- RT Knee Injury s/p TKA, DOI 06/09/24 Intake Note: Margarita is a 58 year old female who presents today with complaints of right knee pain status post fall, DOI: 06/09/24. The patient states she was walking on the sidewalk when she went flying , fell and smashed her right knee . Patient stat es she has a limp, cannot bend fully, has swelling, and a painful bump. Patient is taking Tramadol she was given for another procedure. History of right total knee replacement, several years ago. Allergies bee stings Allergy (Uncoded 06/12/24 11:57) Anaphylaxis Medication List - Last Reconciled 06/12/24 by Faisal Schroeder MD albuterol sulfate 90 mcg/actuation (Ventolin HFA) 2 puffs inhalation Q4H PRN cetirizine 10 mg PO DAILY cholecalciferol (vitamin D3) 50 mcg PO DAILY diazepam (Valium) 10 mg PO Q12H PRN duloxetine 60 mg PO BID epinephrine 0.3 mL IM ONCE PRN gabapentin 300 mg PO BID ibuprofen 800 mg PO TID PRN lamotrigine 100 mg PO BID lamotrigine 50 mg PO DAILY levothyroxine 75 mcg PO DAILY loratadine 10 mg PO DAILY montelukast 10 mg PO DAILY omeprazole 20 mg PO BID sennosides (senna) 34.4 mg PO BID tramadol 100 mg (2 x 50 mg) PO Q6H PRN PFSH Surgical History (Updated 11/30/22 @ 14:37 by Ngoc Estes CMA) S/P left knee arthroscopy History of total right knee replacement Physical Exam Const Other: Well-nourished well-developed very friendly female awake alert and oriented x3 in no acute distress Extrem Other: Right knee examination shows that the surgical incision is well healed, no erythema, mild tenderness along her medial collateral ligament, full active ex tension and flexion to 100 degrees, her patella tracks well, no instability Results Reviewed Results Reviewed: X-rays of the patient's right knee taken today show a revision total knee arthroplasty in good position with no signs of loosening, no acute bony abnormalities Assessment & Plan Assessment & Plan (1) Right knee pain: Code(s): M25.561 - Pain in right knee Category: Medical Plan Ms. Pandey presents with right knee pain most likely due to soft tissue and bony contusion. She does not appear to have damaged her total knee arthroplasty. She will continue with her gentle cryve-ms-wwgmuy exercises and activity modifications. I did give her a prescription for Valium to help with her muscle spasms. She will contact me prior to her follow-up appointment in 3 months should her symptoms worsen in any way. I spent 21 minutes in reviewing the patient's records and imaging studies, seeing the patient and documenting in the medical record. Orders: Orders XR knee RT 3V Today M25.561 - Pain in right knee Medications: New diazepam (Valium) 10 mg PO Q12H PRN 14 tabs 0RF spasms Coding Level of Care Code Est Pt Level 3 (55175) Complex EM visit Add On G2211 Diagnoses Right knee pain M25.561
--- OUTSIDE RECORDS SUMMARY | 2024-06-12 14:26 | XMS_ITS | Continuity of Care Document ---
Author Organization [facility] Address [address] [place] [address] [address], [address] [place] [address]- Care Team Providers Care Therapist Respiratory Name Role Phone Fe Mcnally DO Primary Care Physician Encounter [facility] Date(s): 04/30/24 - 05/30/24 [facility] [address] [place] [address] Drive [address] [place], [place] [address] Encounter Type: Triage Allergies, Adverse Reactions, Alerts Substance Criticality Severity Reaction Reaction Severity Status amiodarone Amoxycillin allergy Active ciprofloxacin itchy Active sulfamethoxazole 1 rash Unknown Active fentanyl Excessive sleepines Active Dilaudid Difficulty breathing Active Bactrim itchy Active metronidazole Difficulty Breathing Active sulfADIAZINE rash Active trimethoprim rash Active vancomycin Difficulty breathing Active morphine black & blue Active cephalosporins unknown Activ e Flagyl can't talk or h old head up Active Bee Stings Anaphylaxis Active Lyrica swelling Active HYDROmorphone Difficulty Lorraine athing Not available Active 1Outside Source Comment: Other reaction(s): RASH Medications Cane See Instructions, # 1 each, Refills [...] Date: 12/24/16 Status: Ordered Repeat number: 1 Gabapentin = 300 mg, By Mouth, 2 times a day, 0 Refills, Maintenance, 12/14/22 3:22:00 PM EDT, Partial fill upon patient request if the prescription is for a schedule II opioid drug. Start Date: 12/14/22 Status: Ordered Repeat number: 1 Knee Immobilizer [...] 180.0 Unit: tablet Repeat number: 1 levothyroxine 75 mcg (0.075 mg) oral tablet 1 tablet = 75 mcg, By Mouth, Daily, # 30 tablet, 0 Refills, Maintenance, 05/02/24 5:13:00 PM EST, Tablet, Partial fill upon patient request if the prescription is for a schedule II opioid drug. Start Date: 05/02/24 Status: Ordered Quantity: 30.0 Unit: tablet Repeat number: 1 Loratadine 10 mg, By Mouth, Daily, Refills 0, Maintenance, 03/14/24 2:04:00 PM EST, Partial fill upon patient request if the prescription is for a schedule II opioid drug. Start Date: 03/14/24 Status: Ordered Repeat number: 1 Montelukast = 10 mg, By Mouth, Daily, 0 Refills, Maintenance, 12/14/22 3:21:00 PM EDT, Partial fill upon patientrequest if the prescription is for a schedule II opioid drug. Start Date: 12/14/22 Status: Ordered Repeat number: 1 omeprazole 20 mg oral enteric coated capsule 2 capsule = 40 mg, By Mouth, Daily, # 30 capsule, 0 Refills, Maintenance, 04/28/12 1:58:47 PM EST, EC Capsule Start Date: 04/28/12 Status: Ordered Quantity: 30.0 Unit: capsule Repeat number: 1 Senna = 34 mg, By Mouth, 2 times a day, 0 Refills, Maintenance, 03/14/24 2:05:00 PM EST, Partial fill upon patient request if the prescription is for a schedule II opioid drug. Start Date: 03/14/24 Status: Ordered Repeat number: 1 Valium 5 mg oral tablet 5 mg, 1, tablet, By Mouth, 3 times a day, PRN, for 14 days, # 42 tablet, Refills 0, Tot. Refills 0,Acute 06/06/24 1:16:00 PM EST, Spasm, 05/23/24 1:16:00 PM EST, Route to Pharmacy Electronically, [facility]/pharmacy #[id number], Partial fill upon patient request if the prescription is for a schedule II opioid drug., 157.48, cm, 03/14/24 14:06:00 EST, Height Start Date: 05/23/24 Stop Date: 06/06/24 Status: Ordered Quantity: 42.0 Unit: tablet Repeat number: 1 Vitamin D3 2000 intl units oral capsule 1 capsule = 50 mcg, By Mouth, Daily, # 60 capsule, 0 Refills, Maintenance, 05/02/24 5:18:00 PM EST, Capsule, Partial fill upon patient request if the prescription is for a schedule II opioid drug. Start Date: 05/02/24 Status: Ordered Quantity: 60.0 Unit: capsule Repeat number: 1 ZyrTEC 10 mg oral tablet 1 tablet = 10 mg, By Mouth, Daily at bedtime, 0 Refills, Maintenance, 03/14/24 2:04:00 PM EST, Partial fill upon patient request if the prescription is for a schedule II opioid drug. Start Date: 03/14/24 Status: Ordered Repeat number: 1 Problem List [...] Position: Reference Physician Member Role: PCP Address: [address] [place] [address] Internal Medicine [place], [place] [address]- Telecom: Name: Vicky Muñiz RN Position: S RN Member Role: Primary Care Nurse Care Team Related Persons Name: TONO ENRIQUEZ Insurance Providers Guarantor name: BOLA ENRIQUEZ Health Plan Information #: 1 Payer: MEDICARE PART B OUTPT Member Number: NA Policy Number: NA Group Number: NA Health Plan Information #: 2 Payer: [facility] Member Number: NA Policy Number: NA Group Number: NA
--- OUTSIDE RECORDS SUMMARY | 2024-06-12 14:26 | XMS_ITS | Continuity of Care Document ---
Author Organization [facility] Address [address] [place], [place] [address], [address] [place] [address]- Care Team Providers Care Mine Shifter Name Role Phone Fe Mcnally DO Primary Care Physician [phone] Encounter [facility] Date(s): 05/10/24 - 06/09/24 [facility] [address] [place] [address] Drive [address] [place], [place] [address] Encounter Type: Triage Allergies, Adverse Reactions, Alerts Substance Criticality Severity Reaction Reaction Severity Status amiodarone Amoxycillin allergy Active ciprofloxacin itchy Active vancomycin Difficulty breathing Active Bactrim itchy Active metronidazole Difficulty Breathing Active sulfADIAZINE rash Active sulfamethoxazole 1 rash Unknown Active fentanyl Excessive sleepines Active trimethoprim rash Active morphine black & blue Active cephalosporins unknown Activ e Flagyl can't talk or h old head up Active Dilaudid Difficulty breathing Active Bee Stings Anaphylaxis Active HYDROmorphone Difficulty Lorraine athing Not available Active Lyrica swelling Active 1Outside Source Comment: Other reaction(s): RASH [...] Date: 12/24/16 Status: Ordered Repeat number: 1 diazepam 5 mg oral tablet 5 mg, 1, tablet, By Mouth, 3 times a day, PRN, # 21 tablet, Refills 0, Tot. Refills 0, Maintenance,Spasm, 05/31/24 4:24:00 PM EST, Route to Pharmacy Electronically, [facility]/pharmacy #[id number], Partial fill upon patient request if the prescription is for a schedule II opioid drug., 157.48, cm, 03/14/24 14:06:00 EST, Height Start Date: 05/31/24 Stop Date: 06/07/24 Status: Ordered Quantity: 21.0 Unit: tablet Repeat number: 1 Gabapentin = 300 mg, [...] Date: 03/14/24 Status: Ordered Repeat number: 1 Vitamin D3 2000 intl [...] Position: Reference Physician Member Role: PCP Address: [address] [place] [address] Internal Medicine [place] [address]- Telecom: Name: Vicky Muñiz RN Position: S RN Member Role: Primary Care Nurse Care Team Related Persons Name: TONO ENRIQUEZ Insurance Providers Guarantor name: BOLA MINA Health Plan Information #: 1 Payer: MEDICARE PART B OUTPT Member Number: NA Policy Number: NA Group Number: NA Health Plan Information #: 2 Payer: [facility] Member Number: NA Policy Number: NA Group Number: NA
--- OUTSIDE RECORDS SUMMARY | 2024-06-12 14:27 | XMS_ITS | Data Portability ---
Author Organization [place] - [facility], [facility] Cost Report Clerk Address [address] [place] [address] Assessment Encounter Date Assessment Date Assessment LastModified [...] Details Last Modified Time Details Appointments Dental 60 2024 02:30P M DIVYA Hendrix Not available Not available [...] Diagnosis/Indication Diagnosis SNOMED-CT Code Diagnosis ICD10 Code Diagnosis Note [id number] [address] [address] 12/07/2022 14:05:56 12/17/2022 13:39:[id number] [place] [address] 02/16/2023 10:04:10 02/17/2023 10:42:[id number] [place] [address] 03/08/2023 13:26:03 03/09/2023 12:19:28 [id number] [facility] [address] [place] [address] 04/22/2023 10:00:30 04/25/2023 11:02:58 [id number] [facility] [address] [place] [address] 07/06/2023 09:48:14 07/13/2023 11:56:45 [id number] [facility] [address] [place] [address] 08/03/2023 10:28:38 08/05/2023 10:57:07 [id number] [facility] [address] [place] [address] 09/09/2023 12:48:51 09/29/2023 10:54:52 [id number] [facility] [address] [place] [address] 09/12/2023 12:49:19 09/20/2023 08:48:36 Health Concerns [...] 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) Margarita Stone [id number] Margarita A Stone 07/06/2023 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) Margarita Stone [id number] Margarita A Stone 07/06/2023 1 MEDIC[place] B-[place]: [employer] Margarita A Stone [id number] Margarita A Stone 08/03/2023 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) Mragarita Stone [id number] Margarita A Stone 08/03/2023 1 [place]IC[place]: [employer] Margarita A Stone [id number] Margarita A Stone 09/09/2023 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
--- OUTSIDE RECORDS SUMMARY | 2024-06-12 14:27 | XMS_ITS | Data Portability ---
Author Organization [place] [facility] Vernell Jacques [place] Address [address] [place] [address] Care Team Providers Care Medical Record Administrator Name Role Phone NICOLAS MULLINS Primary Care Provider [phone] Assessment Encounter Date Assessment Date Assessment LastModified [...] was given Dr. Gallegos's contact as being [facility]. She was offered evaluation and assessment in [...] total knee replacement. Continue knee conditioning exercises. Emho-wra-ynlxkoc medications as needed. Ultimate failure may occur [...] 3 view 2023 024 [email or web address] [facility], [address], [place], [address], 03/12/2024 06:48:31 Medication Orders None recorded . Patient TargetsNo targets recorded. Patient Instructions Encounter Date Encounter Id Patient Instructions Last Modified By Organization Details Last Modified Time 03/09/2024 [id number] AP, lateral, patellar view of the right knee demonstrate a right revision total knee replacement with components in appropriate position without any signs of hardware related complications. Not available 03/09/2024 15:05:42 Reason for Referral None Reported. Problems Name Problem SNOMED Code Status Onset Date Resolution Date Notes Provider Name and Address Organization Details Recorded Time Osteoarthri tis of left knee joint 6139504169286 09 Active 2022 Faisal Schroeder MD [address], [place], [address], [place] [facility], P 3 14:43:20 Arthritis of left knee 5934511023337 104 Active 2022 Faisal Schroeder MD [address], [place], [address], [place] [facility], P 3 16:05:31 Pain of right knee joint 7575225485102 00 Active 2022 Faisal Schroeder MD [address], [place], [address], [place] [facility], P 3 16:20:32 Pain of left knee joint 4463557948231 07 Active 2022 Faisal Schroeder MD [address], [place], [address], [place] [facility], P 3 16:21:00 Problem Notes None recorded. Procedures Surgical History Date Name Laterality Status Provider Name and Address Organization Details Recorded Time Total knee arthroplasty completed Farzana Zhao [place] [facility], P 07/02/2022 14:07:55 Imaging Results None recorded. [...] Not available Not available Not available 07/02/2022 12502 8003 SNOMED Farzana Zhao null, [place] [facility], P 3 14:05:03 1323 Product containin g cephalosp huber (product) medicatio n Not available Not available Not available 07/02/2022 78478 9009 SNOMED Farzana Zhao null, [place] - [facility], P 3 14:05:13 1324 fentanyl medicatio n Not available Not available Not available 07/02/2022 4337 RxNorm Farzana Zhao null, [place] - [facility], P 3 14:05:23 1325 amiodaron e medicatio n Not available Not available Not available 07/02/2022 703 RxNorm Farzana Zhao null, [place] - [facility], P 3 14:05:30 1326 Dilaudid medicatio n Not available Not available Not available 07/02/2022 68937 3 RxNorm Farzana Zhao null, [place] - [facility], P 3 14:05:37 1327 trimethop rim medicatio n Not available Not available Not available 07/02/2022 18745 RxNorm Farzana Zhao null, [place] - [facility], P 3 14:05:51 Medications Name Sig Start [...] Updated DateTime 10/18/2022 152.4 cm 41.8 kg/m2 [address]207.[address] [facility], P 10/18/2022 14:54:43 Date Recorded Body height Body mass index (BMI) Body weight Provider Name and Address Organization Details Last Updated DateTime 07/02/2022 152.4 cm 41.8 kg/m2 [address]27.[address] [place] [facility] [place] 07/02/2022 14:06:21 Social History None recorded. [...] SNOMED-CT Code Diagnosis ICD10 Code Diagnosis Note [id number] MD GERRY Toro [address] [facility] [address] [facility] [address] 07/02/2022 13:58:47 07/02/2022 14:52:34 Osteoarthritis of left knee joint 6731580528 83018 M17.12 [id number] MD GERRY Zuñiga [address] [facility] [address] [facility] [address] 10/18/2022 14:41:29 10/19/2022 09:00:49 [id number] MD GERRY Zuñiga [address] [facility] [address] [facility] [address] 03/09/2024 14:29:57 03/09/2024 15:10:38 History of right total knee replacement 2497764151 339379 Z96.651 Surgical follow-up 62835 4000 Z47.1 Z96.651 Health Concerns Section Related Observation LastModified by Organization Detai ls LastModified Time None Recorded Concern Status LastModified by Organization Details LastModified Time None Recorded Advance Directives Directive None Recorded Payers Encounter Date Sequence Insurance Name Policy Number Policy Castellon Covered Member ID Castellon Member ID Guarantor Name 07/02/2022 1 [place] [employer] Margarita A Stone [id number] Margarita Stone 07/02/2022 2 [place] Margarita A Stone [id number] Margarita Stone 10/18/2022 1 [place] [employer] Margarita A Stone [id number] Margarita Stone 10/18/2022 2 [place] Margarita A Stone [id number] Margarita Stone 03/09/2024 1 [place] [employer] Margarita A Stone [id number] Margarita Stone 03/09/2024 2 [place] Margarita A Stone [id number] Margarita Stone Notes Date Note Type Note [...] well through the night. Faisal Schroeder MD [address] [place] [address], [address], [place] [facility], P 07/02/2022 16:09:35 OBGyn Episode No OBEpisode recorded.
--- OUTSIDE RECORDS SUMMARY | 2024-06-12 14:27 | XMS_ITS | Clinical Summary ---
Author Organization [facility] Address [address] [place] [address] Care Team Providers Care Forest Law And Policy Professor Name Role Phone Fe Mcnally DO Primary Care Provider [phone] Allergies Active Allergy Reactions Criticality Noted Date Comments Amiodarone 09/14/2018 Other reaction(s): RASH Sulfamethoxazole-Trimethop rim 09/14/2018 Cephalosporins Shortness Of Breath High 09/14/2018 Ciprofibrate 09/14/2018 Other reaction(s): UNKNOWN Hydromorphone 09/14/2018 Fentanyl 09/14/2018 Sulfamethoxazole 02/09/2019 Other reaction(s): RASH Trimethoprim 02/09/2019 Other reaction(s): RASH Medications Medication Sig Dispensed Refills Start Date End Date Status lamoTRIgine (LaMICtal) 25 MG tablet 0 08/08/2018 Active etodolac (LODINE) 500 MG tablet 0 08/26/2018 Active DULoxetine (CYMBALTA) DR capsule 60 mg take 2 capsule by mouth every morning 0 08/29/2018 Active omeprazole (PriLOSEC) 20 MG capsule Take 20 mg by mouth daily. 0 06/30/2018 Active ALL DAY ALLERGY 10 MG tablet 1 08/29/2018 Active Cholecalciferol (VITAMIN D3) 2000 units capsule 0 11/24/2018 Active SENNA-LAX 8.6 MG tablet take 4 tablet by mouth twice a day 0 10/03/2018 Active triamcinolone (KENALOG) 0.1 % cream APPLY A THIN LAYER TO THE AFFECTED AREA(S) TWICE A DAY 0 10/27/2018 Active levothyroxine (SYNTHROID, LEVOXYL) tablet 50 mcg Take 50 mcg by mouth daily. 0 12/15/2018 Active loratadine (CLARITIN) 10 MG tablet Take 10 mg by mouth daily. 0 01/09/2019 Active cetirizine (ZyrTEC) 10 MG tablet 0 08/29/2018 Active gabapentin (NEURONTIN) 300 MG capsule Take 300 mg by mouth every night at bedtime. 0 02/13/2019 Active VENTOLIN HFA 108 (90 Base) MCG/ACT inhaler 0 05/31/2019 Act jordan ARNUITY ELLIPTA 100 MCG/ACT AEPB 0 05/31/2019 Active tiZANidine (ZANAFLEX) 2 MG capsule Take 1 capsule (2 mg total) by mouth 3 (three) times a day. 90 capsule 1 06/06/2019 Active diazePAM (VALIUM) tablet 5 mg Take 1 tab 2 hours before MRI; Repeat X 1 tab 30 minutes before MRI 2 tablet 0 08/08/2019 Active benzonatate (TESSALON) 100 MG capsule TK 1 C PO TID PRF COUGH 0 07/11/2019 Active SYMBICORT 160-4.5 MCG/ACT inhaler INL 2 PFS PO BID 0 11/29/2019 Act jordan montelukast (SINGULAIR) 10 MG tablet 0 06/26/2020 Active HYDROcodone-acetamino phen (Vicodin) 5-300 MG per tablet Take 1-2 tablets by mouth every 6 (six) hours as needed for pain. 30 tablet 0 03/13/2021 Active GoodSense Pain Relief Extra St 500 MG tablet 0 02/13/2021 Active Eliquis 2.5 MG TABS tablet 0 02/13/2021 Active hydrOXYzine (ATARAX) 25 MG tablet TAKE 1 TABLET BY MOUTH FOUR TIMES DAILY NEEDED FOR ITCHING 0 02/25/2021 Active morphine (MSIR) 15 MG tablet 0 03/22/2021 Active ondansetron (ZOFRAN-ODT) 4 MG disintegrating tablet 0 02/13/2021 Act jordan pantoprazole (PROTONIX) 40 MG tablet 0 02/13/2021 Active Stool Softener/Laxative 50-8.6 MG 0 02/13/2021 Active oxyCODONE (ROXICODONE) 5 MG immediate release tablet Take 1-2 tabs every 4 hours as needed for pain 50 tablet 0 06/23/2021 Active Trelegy Ellipta 200-62.5-25 MCG/INH AEPB TAKE 1 PUFF BY MOUTH EVERY DAY 0 08/30/2021 Active topiramate (TOPAMAX) 25 MG tablet PLEASE SEE ATTACHED FOR DETAILED DIRECTIONS 0 07/21/2021 Active methylPREDNISolone (MEDROL DOSEPACK) 4 MG tablet follow package directions 21 tablet 0 02/23/2022 Active traMADol (ULTRAM) 50 MG tablet Take 1 tab every 12 hours as needed for pain 60 tablet 0 05/25/2022 Active Active Problems Problem Noted Date Diagnosed Date Left hand pain 04/25/2019 Postop check 03/22/2019 Left carpal tunnel syndrome 03/14/2019 Right carpal tunnel syndrome 03/14/2019 Primary osteoarthritis of right knee 01/30/2019 Trigger finger, left ring finger 12/13/2018 Family History Medical History Relation Name Comments Heart attack Father Heart attack Mother Relation Name Status Comments Father Mother Social History Tobacco Use Types Packs/Day Years Used Date Smoking Tobacco: Never Smokeless Tobacco: Never Alcohol Use Standard Drinks/Week Comments No 0 (1 standard drink = 0.6 oz pur e alcohol) Sex and Gender Information Value Date Recorded Sex Assigned at Not on file Gender Identity Not on file Sexual Orientation Not on file Job Start Date Occupation Industry Not on file Not on file Not on file Last Filed Vital Signs Vital Sign Reading Time Taken Comments Blood Pressure - - Pulse - - Temperature - - Respiratory Rate - - Oxygen Saturation - - Inhaled Oxygen Concentration - - Weight 97.1 kg (214 lb) 01/08/2022 9:11 AM EDT Height 152.4 cm (5') 01/08/2022 9:11 AM EDT Body Mass Index 41.79 01/08/2022 9:11 AM EDT Plan of Treatment Health Maintenance Due Date Last Done Comments Hepatitis B Vaccines (1 of 3 - 3-dose series) 1966 Hepatitis C Screening 1966 COVID-19 Vaccine (#1) 03/18/1967 Depression Screening 1978 BMI Counseling 1984 Preventative Health Evaluation 1984 DTap / Tdap / Td (1 - Tdap) 1985 Cervical Cancer Screening (P ap Smear) 09/17/1987 Colon Cancer Screening (Colonoscopy) 09/17/2011 Breast Cancer Screening (Mammogram) 2016 Shingrix-Zoster Vaccine (1 of 2) 2016 Influenza Vaccine (#1) 2023 Pneumococcal Vaccine Aged Out No long er eligible based on patient's age to complete this topic RSV Ped < 20 months Aged Out No longe r eligible based on patient's age to complete this topic Care Teams Forest [employer] Policy Professor Relationship Specialty Start Date End Date Fe Mcnally DO [address] [place] [address] PCP - General Family Medicine 09/14/18
--- OUTSIDE RECORDS SUMMARY | 2024-06-12 14:27 | XMS_ITS | Clinical Summary ---
Author Organization [facility] ity Address [address] [place] [address] Care Team Providers Care Aoc Aadc Operations Staff Officer Name Role Phone DaliFe marie Farhad LAI Primary Care Provider [phone] Social History Tobacco Use Types Packs/Day Years Used Date Smoking Tobacco: Never Smokeless Tobacco: Never Alcohol Use Standard Drinks/Week Comments Never 0 (1 standard drink = 0.6 oz pur e alcohol) Comments Unknown Sex and Gender Information Value Date Recorded Sex Assigned at Not on file Legal Sex Female 7:32 AM EST Gender Identity Not on file Sexual Orientation Not on file Obstetrics History Last Filed Vital Signs Vital Sign Reading Time Taken Comments Blood Pressure 130/79 12/14/2022 11:38 AM EDT Pulse 87 12/14/2022 11:38 AM EDT Temperature - - Respiratory Rate - - Oxygen Saturation - - Inhaled Oxygen Concentration - - Weight 90.7 kg (200 lb) 12/14/2022 11:38 AM EDT Height 157.5 cm (5' 2 ) 12/14/2022 11:38 AM EDT Body Mass Index 36.58 12/14/2022 11:38 AM EDT Plan of Treatment Upcoming Encounters Date Type Department Care Team (Late st Contact Info) Description 07/10/2024 3:45 PM EDT Office Visit Orthopedic Surgery - [place] [address] [facility] [address] [place] [address] Rubi Brar MD [address] [facility] [address] [place] [address] Health Maintenance Due Date Last Done Comments Breast Cancer Screening 1966 DTaP,Tdap,and Td Vaccines (1 - Tdap) 1985 Hepatitis B Vaccines (1 of 3 - 19+ 3-dose series) 1985 Cervical Cancer Screening: P ap Smear 09/17/1987 Pneumococcal Vaccine: 50+ Ye ars (1 of 1 - PCV) 2016 Zoster Vaccines (1 of 2) 2016 Cholesterol Screening (Lipid Panel) 03/11/2022 Colorectal Cancer Screening: Colonoscopy 03/11/2022 Depression Screening 03/11/2022 HIV Screening 03/11/2022 Hepatitis C Screening 03/11/2022 Medicare Annual Wellness Visit 03/11/2022 Social Influencers of Health Screening 03/11/2022 COVID-19 Vaccine (1 - 2023-2 5 season) 2023 Influenza Vaccine (#1) 2023 HIB Vaccines Aged Out No longer eligi ble based on patient's age to complete this topic HPV Vaccines Aged Out No longer eligi ble based on patient's age to complete this topic Hepatitis A Vaccines Aged Out No long er eligible based on patient's age to complete this topic IPV Vaccines Aged Out No longer eligi ble based on patient's age to complete this topic MMR Vaccines Aged Out No longer eligi ble based on patient's age to complete this topic Meningococcal ACWY Vaccine Aged Out N o longer eligible based on patient's age to complete this topic Meningococcal B Vacine Aged Out No lo nger eligible based on patient's age to complete this topic Pneumococcal Vaccine: Pediat rics (0 to 5 Years) and At-Risk Patients (6 to 64 Years) Aged Out No longer eligible b ased on patient's age to complete this topic RSV Immunization Patients Un isma 20 months Aged Out No longer eligible b ased on patient's age to complete this topic Varicella Vaccines Aged Out No longer eligible based on patient's age to complete this topic Insurance MEDICARE [place]ICAID - [place] Advance Directives Documents on File Type Date Recorded Patient Channel Man Expl anation Health Care Decision (hx) 02/14/2021 AD CESAR DIRECTIVE Health Care Decision (hx) 02/13/2021 AD CESAR DIRECTIVE Health Care Decision (hx) 02/13/2021 AD CESAR DIRECTIVE Health Care Decision (hx) 02/13/2021 AD CESAR DIRECTIVE Health Care Decision (hx) 02/13/2021 AD CESAR DIRECTIVE Health Care Decision (hx) 02/13/2021 AD CESAR DIRECTIVE Health Care Decision (hx) 02/13/2021 AD CESAR DIRECTIVE Health Care Decision (hx) 02/13/2021 AD CESAR DIRECTIVE Health Care Decision (hx) 02/13/2021 AD CESAR DIRECTIVE Health Care Decision (hx) 02/13/2021 AD CESAR DIRECTIVE Health Care Decision (hx) 02/13/2021 AD CESAR DIRECTIVE Health Care Decision (hx) 02/13/2021 AD CESAR DIRECTIVE Health Care Decision (hx) 02/13/2021 AD CESAR DIRECTIVE Health Care Decision (hx) 02/13/2021 AD CESAR DIRECTIVE Care Teams Aoc Aadc Operations Staff Officer Relationship Specialty Start Date End Date Fe Mcnally DO [address] [place] [id number] PCP - General Family Medicine 09/14/18
--- OUTSIDE RECORDS SUMMARY | 2024-06-12 14:27 | XMS_ITS | Continuity of Care Document ---
Author Organization [facility] Address [address] [place], [place] [address], [address] [place] [address]- Care Team Providers Care Carton Stapler Name Role Phone Fe Mcnally DO Primary Care Physician [phone] Encounter [facility] Date(s): 05/08/24 - 06/07/24 [facility] [address] [place] [address] Drive [address] [place], [place] [address] Encounter Type: Triage Allergies, Adverse Reactions, Alerts Substance Criticality Severity Reaction Reaction Severity Status amiodarone Amoxycillin allergy Active metronidazole Difficulty Breathing Active sulfADIAZINE rash Active sulfamethoxazole 1 rash Unknown Active fentanyl Excessive sleepines Active Dilaudid Difficulty breathing Active Bactrim itchy Active ciprofloxacin itchy Active trimethoprim rash Active vancomycin Difficulty breathing Active morphine black & blue Active cephalosporins unknown Activ e Flagyl can't talk or h old head up Active Bee Stings Anaphylaxis Active HYDROmorphone Difficulty [...] 4:24:00 PM EST, Route to Pharmacy Electronically, [facility]/pharmacy #[id number], Partial fill upon patient request if [...] Position: Reference Physician Member Role: PCP Address: [address] [place] [address] Internal Medicine [address] [id number]- Telecom: Name: Vicky Muñiz RN Position: S RN Member Role: Primary Care Nurse Care Team Related Persons Name: TONO ENRIQUEZ Insurance Providers Guarantor name: BOLA MINA Health Plan Information #: 1 Payer: MEDICARE PART B OUTPT Member Number: NA Policy Number: NA Group Number: NA Health Plan Information #: 2 Payer: [facility] Member Number: NA Policy Number: NA Group Number: NA
--- OUTSIDE RECORDS SUMMARY | 2024-06-12 14:27 | XMS_ITS | Continuity of Care Document ---
Author Organization [facility] Address [address] [place] [address] [address], [address] [place] [address]- Care Team Providers Care Slime Plant Operator Helper Name Role Phone Fe Mcnally DO Primary Care Physician Encounter [facility] Date(s): 04/26/24 - 05/26/24 [facility] [address] [place] [address] Drive [address] [place], [place] [address] Encounter Type: Triage Allergies, Adverse Reactions, Alerts Substance Criticality Severity Reaction Reaction Severity Status amiodarone Amoxycillin allergy Active ciprofloxacin itchy Active metronidazole Difficulty Breathing Active sulfADIAZINE rash Active sulfamethoxazole 1 rash Unknown Active trimethoprim rash Active vancomycin Difficulty breathing Active fentanyl Excessive sleepines Active morphine black & blue Active cephalosporins unknown Activ e Flagyl can't talk or h old head up Active Dilaudid Difficulty breathing Active Bactrim itchy Active Bee Stings Anaphylaxis Active Lyrica swelling [...] Quantity: 30.0 Unit: capsule Repeat number: 1 oxyCODONE 10 mg oral tablet 1 tablet = 10 mg, By Mouth, Every 6 hours, PRN as needed for pain, for 7 days, # 28 tablet, 0 Refills, Acute 05/30/24 1:16:00 PM EST, 05/23/24 1:16:00 PM EST, Tablet, [facility]/pharmacy #[id number], Partial fill upon patient request if the prescription is for a schedule II opioid drug., 157.48, cm, 03/14/24 14:06:00 EST, Height Start Date: 05/23/24 Stop Date: 05/30/24 Status: Ordered Quantity: 28.0 Unit: tablet Repeat number: 1 Senna = 34 mg, [...] 1:16:00 PM EST, Route to Pharmacy Electronically, [facility]/pharmacy #[id number], Partial fill upon patient request if the prescription is for a schedule II opioid drug., 157.48, cm, 03/14/24 14:06:00 EST, Height Start Date: 05/23/24 Stop Date: 06/06/24 Status: Ordered Quantity: 42.0 Unit: tablet Repeat number: 1 Valium 5 mg oral tablet 5 mg, 1, tablet, By Mouth, 3 times a day, PRN, for 14 days, # 42 tablet, Refills 0, Tot. Refills 0,Acute 05/28/24 3:57:00 PM EST, Spasm, 05/14/24 3:57:00 PM EST, Route to Pharmacy Electronically, [facility]/pharmacy #[id number], Partial fill upon patient request if the prescription is for a schedule II opioid drug., 157.48, cm, 03/14/24 14:06:00 EST, Height Start Date: 05/14/24 Stop Date: 05/28/24 Status: Ordered Quantity: 42.0 Unit: tablet Repeat [...] Position: Reference Physician Member Role: PCP Address: [address] [place] [address] Internal Medicine [place] [address] Telecom: Name: Vicky Muñiz RN Position: [facility] RN Member Role: Primary Care Nurse Care Team Related Persons Name: TONO ENRIQUEZ Insurance Providers Guarantor name: BOLA ENRIQUEZ Health Plan Information #: 1 Payer: MEDICARE PART B OUTPT Member Number: NA Policy Number: NA Group Number: NA Health Plan Information #: 2 Payer: [facility] Member Number: NA Policy Number: NA Group Number: NA
== END 2024-06-12 12:14 | disposition home or self-care (01) ==
PROVIDERS: PCP Family Medicine; Visit Provider Orthopaedic Surgery
DX: M25.561 Pain in right knee (principal)
CPT/HCPCS: 99213; G2211

== ENCOUNTER → 2024-06-12 11:41 | Outpatient (BNV) | payer MEDICARE, MEDICAID, SELFPAY | PROVIDERS: Visit Provider Radiology Diagnostic Radiology | DX: M25.561 Pain in right knee (principal) | CPT/HCPCS: 73562 ==

== ENCOUNTER 2024-10-03 06:28 | Outpatient (REF) | payer MEDICARE, MEDICAID, SELFPAY ==
--- NOTE | ~2024-10-03 | XR_ITS ---
EXAMINATION: XR KNEE, RIGHT CLINICAL INFORMATION: M25.561 - Pain in right knee COMPARISON: August 12, 2024 TECHNIQUE: 3 view of the right knee. FINDINGS: Total knee replacement has been performed There has been no interval change in the hardware. No abnormalities noted along the bone metal interfaces. XR/XR knee RT 3V IMPRESSION: Stable total knee replacement on the right. Electronically signed by: Sumanth Lane MD 10/03/2024 03:42 PM EDT
--- OUTSIDE RECORDS SUMMARY | 2024-10-04 06:30 | XMS_ITS ---
Author Name [facility] Organization Unknown History of Medication Use Medication Directions Dispensed Refills Start Date End Date Stat us benzonatate 100 mg capsule TAKE 1 CAPSULE BY MOUTH 3 TIMES A DAY NEEDED FOR COUGH active Breztri Aerosphere 160 mcg-9mcg-4.8mcg/actuati on HFA aerosol inhaler TAKE 2 PUFFS BY MOUTH TWICE A DAY active cetirizine 10 mg tablet TAKE 1 TABLET (1 0 MG) BY MOUTH DAILY. active cholecalciferol (vitamin D3) 50 mcg (2,000 unit) capsule 50 MCG ORALLY DAILY active doxycycline hyclate 100 mg capsule active gabapentin 300 mg capsule TAKE 1 CAPSULE BY MOUTH TWICE A DAY active GaviLyte-G 236 gram-22.74 gram-6.74 gram-5.86 gram oral solution BY MOUTH ONCE USE DIRECTED active ibuprofen 800 mg tablet TAKE 1 TABLET BY MOUTH THREE TIMES A DAY NEEDED FOR PAIN active levothyroxine 75 mcg tablet 75 MCG ORALLY DAILY active lidocaine 5 % topical ointment APPLY TOPICALLY 4 TIMES DAILY NEEDED FOR PAIN active mupirocin 2 % topical ointment APPLY TOPICALLY TWICE A DAY active senna 8.6 mg tablet TAKE 4 TABLETS BY MOUTH TWICE A DAY FOR 90 DAYS active topiramate 25 mg tablet PLEASE SEE ATTACHED FOR DETAILED DIRECTIONS active tramadol 50 mg tablet TAKE 1 TABLET EVERY 12 HOURS NEEDED FOR PAIN active valacyclovir 1 gram tablet TAKE 1 TABLET (1000 MG) ORALLY THREE TIMES A DAY FOR 7 DAYS active Allergies Allergen Reaction Severity Comment Documented Date Source Statu s AMIODARONE [facility] CEPHALOSPORINS [facility] DILAUDID [facility] FENTANYL [facility] SULFA (SULFONAMIDE ANTIBIOTICS) [facility] TRIMETHOPRIM [facility] Problems Problem Status Onset Date Problem Type Date of Resoluti on Source Osteoarthritis of left knee joint active 2022-07-02 ProblemAct [facility] Arthritis of left knee active 2022-07-02 ProblemAct [facility] Pain of left knee joint active 2022-06-22 ProblemAct [facility] Pain of right knee joint active 2022-06-22 ProblemAct [facility] Encounters Encounter Type Encounter Reason Primary Diagnosis Location Date Ambulatory [facility] [place] 03/09/2024 Ambulatory [facility] [place] 10/18/2022 Ambulatory [facility] [place] 10/18/2022 Ambulatory [facility] [place] 08/06/2022 Ambulatory [facility] [place] 08/06/2022 Ambulatory [facility] [place] 08/06/2022 Ambulatory [facility] [place] 07/05/2022 Care Team Organization Name Specialty Phone Email Start Date End Da te [facility] [place] NICOLAS MULLINS Primary Care 03/04/2022 024
--- OUTSIDE RECORDS SUMMARY | 2024-10-04 06:30 | XMS_ITS | Clinical Summary ---
Author Organization [facility] Address [address] [place] [address] Care Team Providers Care Gang Miner Name Role Phone Fe Mcnally DO Primary Care Provider [phone] Allergies Active Allergy Reactions Criticality Noted Date [...] age to complete this topic Care Teams Gang Miner Relationship Specialty Start Date End Date Fe Mcnally DO [address] [place] [address] PCP - General Family Medicine 09/14/18
--- OUTSIDE RECORDS SUMMARY | 2024-10-04 06:30 | XMS_ITS | Clinical Summary ---
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
== END 2024-10-03 06:29 | disposition home or self-care (01) ==
LOC: HO.HOSX 06:28
PROVIDERS: Visit Provider Orthopaedic Surgery
DX: M25.561 Pain in right knee (principal); S83.242D Other tear of medial meniscus, current injury, left knee, subsequent encounter
CPT/HCPCS: 73562; 99212

== ENCOUNTER 2024-10-03 13:41 | Outpatient (AMB) | payer MEDICARE, MEDICAID, SELFPAY ==
[2024-10-03 13:42] VITALS: BMI 39.0
--- NOTE | 2024-10-03 13:42 | A.OFFVIS_ITS ---
Vital Signs 10/03/24 13:42 Height 5 ft 2 in Weight 213 lb BMI 39.0 Intake Visit Reasons: OV- RT Knee Injury s/p TKA, DOI 06/09/24, Left knee pain and giving way Intake Note: Margarita is a 59 year old female who presents with complaints of progressively worsening left knee pain and giving way as well as discomfort in her right knee after falling several months ago. The patient states that she has ?nerve damage? in her left leg which causes intermittent weakness. The patient did undergo revision right total knee replacement surgery several years ago by another surgeon. She denies any fevers or chills. She states that her left knee will give out several times per day. She has failed the last 6 weeks of conservative treatment which has included Tylenol, anti-inflammatory medicines, tramadol, physical therapy exercises and a home exercise program. Allergies bee stings Allergy (Uncoded 10/03/24 14:08) Anaphylaxis [facility] Surgical History (Updated 11/30/22 @ 14:37 by Ngoc Estes [facility]) S/P left knee arthroscopy History of total right knee replacement Physical Exam Vital Signs: BMI result Body Mass Index 39.0 Const Other: Well-nourished well-developed very friendly female awake alert and oriented x3 in no acute distress Extrem Other: Right knee examination shows that the surgical incision is well healed, no erythema, full active extension and flexion to 120 degrees, her patella tracks well, mild tenderness over her patella Left knee examination shows a minimal effusion, mild crepitus with range of motion, tenderness along her medial joint line, positive Yoli's test, no instability Results Reviewed Results Reviewed: X-rays of the patient's right knee taken today show a total knee arthroplasty in good position with no signs of loosening, no acute bony abnormalities X-rays of the patient's left knee taken previously show mild diffuse joint space narrowing, no acute bony abnormalities Assessment & Plan Assessment & Plan (1) Tear of medial meniscus of left knee: Code(s): S83.242A - Other tear of medial meniscus, current injury, left knee, initial encounter Category: Medical Plan Ms. Pandey presents with progressively worsening left knee pain and mechanical symptoms most likely due to a medial meniscus tear. Thus, I will send the patient for an MRI of her left knee for further evaluation. I will see her back once the MRI is completed to discuss the findings and treatment options. She also has right knee discomfort most likely due to soft tissue and bony contusion after a recent fall. She does not appear to have suffered any damage to her total knee arthroplasty. The patient will follow-up as instructed. I spent 21 minutes in reviewing the patient's records and imaging studies, seeing the patient and documenting in the medical record. Orders: Orders XR knee RT 3V Today M25.561 - Pain in right knee MR knee LT wo con Today S83.242A - Other tear of medial meniscus, current injury, left knee, initial encounter Coding Level of Care Code Est Pt Level 3 (97235) Complex EM visit Add On G2211 Diagnoses Tear of medial meniscus of left knee S83.242A
--- OUTSIDE RECORDS SUMMARY | 2024-10-03 14:16 | XMS_ITS | Data Portability ---
Author Organization [place] - [facility], [facility] Electrical Construction Project Manager Address [address] [place] [address] Assessment Encounter Date Assessment Date Assessment LastModified by Organization Details LastModified Time 08/03/2023 08/03/2023 Reason for Encounter Removeable Prosthesis Encounter Date: 08/03/2023 Allergies No known drug allergies Medications No medications reported Completed Procedures D5212 - Mandibular partial denture - resin base (including any conventional clasps, rests and teeth) Teeth: 18, 19, 30, 31 Stages: Four D5110 - Complete denture - maxillary Stages: Four Completed Procedures (cont.) Patient presents for scheduled visit for a wax try-in. H&N exam - WNL, Extraoral and Intraoral soft tissues - WNL, OHI provided verbally. Completely edentulous maxilla, partially edentulous mandible Wax Try-in assessment, occlusion good, midline, good, pt likes the overall esthetics and look, pt did not want any changes done. Prosthetic consent reviewed and obtained. pt dismissed in stable condition Additional Comments:NV DELIVERY Explained and discussed conditions, [...] 4:45 PM. [id number] Not available 09/20/2023 08:48:31 07/25/2024 07/25/2024 Reason for Encounter Removeable Prosthesis Encounter Date: 10:30 AM - 07/25/2024 Treating Provider: DIVYA Martinez Allergies Medications No medications reported Completed Procedures D0171 - Re-evaluation - post-operative office visit Completed Procedures (cont.)Completed try in for upper complete denture(second time) ,to pt satisfaction, pt is happy with the fit and shade of the denture she signed the consent, and pt will return for denture delivery Additional Comments: Explained and discussed conditions, findings, and plan of care. Follow-Up/Next Visit: Next appointment date is 08/06/2024 at 02:30 PM Treating Provider: Evelyn STOKES Reason For Encounter: Removeable Prosthesis Treating Provider DIVYA Martinez I attest that the treatment rendered today was completed. , 10:30 PM. [id number] Not available 08/03/2024 14:57:02 09/10/2024 09/10/2024 Reason for Encounter Removeable Prosthesis Encounter Date: 10:30 AM - 09/10/2024 Treating Provider: DIVYA Martinez Allergies Medications No medications reported Completed Procedures D5212 - Mandibular partial denture - resin base (including any conventional clasps, rests and teeth) Teeth: 18, 19, 30, 31 Stages: Final D5110 - Complete denture - maxillary Stages: Final Completed Procedures (cont.) Patient presents for Max. CD, . and Rai. RPD's delivery. Seated denture. Checked retention and esthetics with patient. Adjusted using PIP paste and articulating paper to achieve comfortable, bilateral balanced occlusion. Reviewed denture care - including taking denture out at night, brushing with soft denture brush, and maintaining OHI. Patient left satisfied. Next Visit: Adjustment PRN Additional Comments:PT AWARE THAT HER BITE IS SHIFTED TO LEFT SIDE Explained and discussed conditions, findings, and plan of care. Follow-Up/Next Visit: Next appointment date is 10/11/2024 at 10:30 AM Treating Provider: Evelyn STOKES Reason For Encounter: Removeable Prosthesis Treating Provider DIVYA Martinez I attest that the treatment rendered today was completed. , 3:56 PM. [id number] Not available 09/11/2024 09:39:26 Plan of Treatment Reminders Order Date Submit Date Provider Last Modified By Organization Details Last Modified Time Details Appointments Dental 60 2024 10:30A M DIVYA [place] Not available Not available Not available Dental 60 2024 09:30A M DIVYA [place] Not available Not available [...] SNOMED-CT Code Diagnosis ICD10 Code Diagnosis Note [id number] Evelyn Garciaedmundcrys talley [address] [address] 12/07/2022 14:05:56 12/17/2022 13:39:51 [id number] Evelyn Radhaedmundcrys mayank [address] [place] [address] 02/16/2023 10:04:10 02/17/2023 10:42:03 [id number] Evelyn talley [address] [place] [address] 03/08/2023 13:26:03 03/09/2023 12:19:28 [id number] Evelyn talley [address] [place] [address] 04/22/2023 10:00:30 04/25/2023 11:02:58 [id number] Evelyn Willowcrys talley [facility] [address] [place] [address] 07/06/2023 09:48:14 07/13/2023 11:56:45 [id number] Evelyn Radhamary ann talley [address] [place] [address] 08/03/2023 10:28:38 08/05/2023 10:57:07 [id number] Evelyn talley [facility] [address] [place] [address] 09/09/2023 12:48:51 09/29/2023 10:54:52 [id number] DIVYA Luong [address] [place] [address] 09/12/2023 12:49:19 09/20/2023 08:48:36 [id number] DIVYA Luong [address] [place] [address] 07/25/2024 10:00:31 08/03/2024 14:57:10 [id number] DIVYA Luong [address] [place] [address] 09/10/2024 10:35:00 09/11/2024 09:39:32 Health Concerns Section Related Observation LastModified by Organization Detai ls LastModified Time None Recorded Concern Status LastModified by Organization Details LastModified Time None Recorded Advance Directives Directive None Recorded Payers Insurance Date Sequence Insurance Name Policy Number Policy Castellon Covered Member ID Castellon Member ID Guarantor Name 09/04/2024 [place] 21 Margarita A Stone [id number] Margarita A Stone 07/06/2023 [place] Margarita A Stone [id number] Margarita A Stone 09/07/2024 1 MEDICARE B-[place]: [facility] Margarita A Stone [id number] Margarita A Stone 09/07/2024 2 [place] Margarita A Stone [id number] Margarita A Stone 12/07/2022 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
--- OUTSIDE RECORDS SUMMARY | 2024-10-03 14:16 | XMS_ITS | Clinical Summary ---
Author Organization 175 [facility] Address [address] [place] [address] Phone Care Team Providers Care Ironworker Apprentice Name Role Phone Fe Mcnally DO Primary Care Provider [phone] Social History Tobacco Use Types Packs/Day Years [...] 12/14/2022 11:38 AM EDT Plan of Treatment Health Maintenance [...] Influencers of Health Screening 03/11/2022 COVID-19 Vaccine (2023-2 5 season) 2023 Influenza Vaccine (Season Ended) 2024 HIB Vaccines Aged Out No longer eligi [...] age to complete this topic Meningococcal B Vaccine Aged Out No l onger eligible based on patient's age to complete [...] Documents on File Type Date Recorded 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
--- OUTSIDE RECORDS SUMMARY | 2024-10-03 14:16 | XMS_ITS | Clinical Summary ---
Author Organization [facility] Address [address] [place] [address] Care Team Providers Care Risk Developer Name Role Phone Fe Mcnally DO Primary Care Provider [phone] Allergies Active Allergy Reactions Criticality Noted Date [...] Vaccine (1 of 2) 2016 Influenza Vaccine (Season Ended) 2024 Pneumococcal Vaccine Aged Out No long er eligible based on patient's age to complete this topic RSV Ped < 20 months Aged Out No longe r eligible based on patient's age to complete this topic Care Teams Risk Developer Relationship Specialty Start Date End Date Fe Mcnally DO [address] [place] [address] PCP - General Family Medicine 09/14/18
== END 2024-10-03 14:24 | disposition home or self-care (01) ==
LOC: HO.HOS 13:41
PROVIDERS: Visit Provider Orthopaedic Surgery
DX: S83.242A Other tear of medial meniscus, current injury, left knee, initial encounter (principal)
CPT/HCPCS: 99213; G2211

== ENCOUNTER → 2024-10-03 13:55 | Outpatient (BNV) | payer MEDICARE, MEDICAID, SELFPAY | PROVIDERS: Visit Provider Radiology Diagnostic Radiology | DX: M25.561 Pain in right knee (principal); Z96.651 Presence of right artificial knee joint | CPT/HCPCS: 73562 ==

== ENCOUNTER → 2024-10-20 14:29 | Outpatient (BNV) | payer MEDICARE, MEDICAID, SELFPAY | PROVIDERS: Visit Provider Radiology Diagnostic Radiology | DX: S83.242A Other tear of medial meniscus, current injury, left knee, initial encounter (principal); M17.12 Unilateral primary osteoarthritis, left knee; M25.462 Effusion, left knee; M71.22 Synovial cyst of popliteal space [Baker], left knee; M67.462 Ganglion, left knee | CPT/HCPCS: 73721 ==

== ENCOUNTER 2024-10-20 14:30 | Outpatient (REF) | payer MEDICARE, MEDICAID, SELFPAY ==
--- OUTSIDE RECORDS SUMMARY | 2024-10-19 23:59 | XMS_ITS | Continuity of Care Document ---
Author Organization [facility] Address [address] [place] [address] mandi, [address] [place] [address]- Care Team Providers Care Waist Cutter Name Role Phone Fe Mcnally DO Primary Care Physician [id number] Date(s): 09/11/24 - 10/19/24 [facility] [address] [place] [address] Drive [address] [place], [place] [address] Attending Physician: Gianni PALUMBO, Faraz Lomeli Encounter Type: Pre Office Visit Allergies, Adverse Reactions, Alerts Substance Criticality Severity Reaction Reaction Severity Status amiodarone Amoxycillin allergy Active sulfADIAZINE rash Active sulfamethoxazole 1 rash Unknown Active fentanyl Excessive sleepines Active morphine black & blue Active Dilaudid Difficulty breathing Active ciprofloxacin itchy Active metronidazole Difficulty Breathing Active trimethoprim rash Active vancomycin Difficulty breathing Active cephalosporins unknown Activ e Flagyl can't talk or h old head up Active Bactrim itchy Active Bee Stings Anaphylaxis Active HYDROmorphone Difficulty [...] 4:24:00 PM EST, Route to Pharmacy Electronically, [facility]/pharmacy #[id number], Partial fill upon patient request if the prescription is for a schedule II opioid drug., 157.48, cm, 03/14/24 14:06:00 EST, Height Start Date: 05/31/24 Stop Date: 06/07/24 Status: Ordered Quantity: 21.0 Unit: tablet Repeat number: 1 famotidine 20 mg oral tablet 20 mg, 1, tablet, By Mouth, Daily, # 7 tablet, Refills 0, Tot. Refills 0, Maintenance, 06/13/24 3:31:00 PM EDT, Route to Pharmacy Electronically, [facility]/pharmacy #[id number], Partial fill upon patient request if the prescription is for a schedule II opioid drug., 157.48, cm, 06/13/24 14:43:00 EDT, Height Start Date: 06/13/24 Stop Date: 06/20/24 Status: Ordered Quantity: 7.0 Unit: tablet Repeat number: 1 Gabapentin = [...] Position: Reference Physician Member Role: PCP Address: [address] [place] [address] Internal Medicine [address] Telecom: Name: Antonino CIFUENTES, Vicky Position: [facility] RN Member Role: Primary Care Nurse Care Team Related Persons Name: TONO ENRIQUEZ Insurance Providers Guarantor name: BOLA ENRIQUEZ Health Plan Information #: 1 Payer: MEDICARE B Payer Identifier: NA Member Number: [id number] Group Number: NA Subscriber Identifier: [id number] Relationship to Subscriber: self Coverage Type: NA Coverage Verification Date: NA Telecom: NA Address: Health Plan Information #: 2 Payer: [employer] Payer Identifier: NA Member Number: [id number] Group Number: NA Subscriber Identifier: [id number] Relationship to Subscriber: self Coverage Type: MEDICAID Coverage Verification Date: NA Telecom: NA Address:
--- NOTE | ~2024-10-20 | MR_ITS ---
CLINICAL HISTORY: S83.242A - Other tear of medial meniscus, current injury, left knee, ini... MR left knee without gadolinium Comparison: DX/SR - XR KNEE 3 VIEWS LEFT - 11/30/22 14:17 EDT Findings: No fractures. No pathologic bone lesions. There is mild subchondral ill-defined STIR signal elevation within the anterior weight-bearing and nonweightbearing aspect of the medial femoral condyle. Subchondral cyst formation within the patellar apex, medial and lateral patellar facets. Moderate tricompartmental periarticular osteophyte formation. Moderate articular cartilage loss diffusely overlies the weight-bearing aspects of the medial femoral condyle and medial tibial plateau. Severe articular cartilage loss overlying the patellar apex and lateral patellar facet. Small knee joint effusion and small Jackson's cyst. Small ganglion cyst along the popliteus. Anterior and posterior cruciate ligaments are intact. Medial collateral ligament is intact. There is mild T2 signal elevation within the lateral collateral ligament at the femoral insertion site. Patellar retinacula and iliotibial band are intact. Low-grade partial-thickness tearing of the quadriceps tendon at the patellar insertion site. The popliteus, and flexor tendons are intact. Vertically oriented linear high T2 signal intensity traverses the junction of the middle and peripheral thirds of the posterior horn medial meniscus, demonstrating superior and inferior articular surface extension, indicating vertical tearing. Lateral meniscus is intact. IMPRESSION: 1. Medial meniscal tearing. 2. Tricompartmental osteoarthritis with associated articular cartilage loss. 3. Knee joint effusion, Jackson's cyst, and small ganglion cyst along the popliteus. 4. Low-grade tearing of the quadriceps tendon. This document has been electronically signed by: Kimberly Garcia MD on 10/22/2024 17:21:56
--- OUTSIDE RECORDS SUMMARY | 2024-10-20 14:50 | XMS_ITS | Data Portability ---
Author Organization [place] - [facility] [place] [facility], [facility] Assembler Erector Address [address] [place] [address] Assessment Encounter Date Assessment Date Assessment LastModified [...] Modified Time Details Appointments Dental 60 2024 01:30P M DIVYA [place] Not available Not available [...] SNOMED-CT Code Diagnosis ICD10 Code Diagnosis Note [id number] Evelyn Garciaedmnudcrys talley [address] [address] 12/07/2022 14:05:56 12/17/2022 13:39:51 [id number] Evelyn Radhaedmundcrys mayank [address] [place] [address] 02/16/2023 10:04:10 02/17/2023 10:42:03 [id number] Evelyn talley [address] [place] [address] 03/08/2023 13:26:03 03/09/2023 12:19:28 [id number] Evelyn talley [address] [place] [address] 04/22/2023 10:00:30 04/25/2023 11:02:58 [id number] Evelyn Willowcrys talley [facility] [address] [place] [address] 07/06/2023 09:48:14 07/13/2023 11:56:45 [id number] Evelyn Radhamary ann talley [address] [place] [address] 08/03/2023 10:28:38 08/05/2023 10:57:07 [id number] Evelyn talley [facility] [address] [place] [address] 09/09/2023 12:48:51 09/29/2023 10:54:52 [id number] DIVYA Luong [address] [place] [address] 09/12/2023 12:49:19 09/20/2023 08:48:36 [id number] DIVYA Luong [address] [place] [address] 07/25/2024 10:00:31 08/03/2024 14:57:10 [id number] DIVYA Luong Vernell [address] [place] [address] 09/10/2024 10:35:00 09/11/2024 09:39:32 Health Concerns Section Related Observation LastModified by Organization Detai ls LastModified Time None Recorded Concern Status LastModified by Organization Details LastModified Time None Recorded Advance Directives Directive None Recorded Payers Insurance Date Sequence Insurance Name Policy Number Policy Castellon Covered Member ID Castellon Member ID Guarantor Name 10/08/2024 [place] 21 Margarita A Stone [id number] Margarita A Stone 07/06/2023 [place] Margarita A Stone [id number] Margarita A Stone 10/08/2024 1 MEDICARE B-[place]: [facility] Margarita A Stone [id number] Margarita A Stone 10/08/2024 2 [place] Margarita A Stone [id number] Margarita A Stone 12/07/2022 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
--- OUTSIDE RECORDS SUMMARY | 2024-10-20 14:50 | XMS_ITS | Encounter Summary ---
Author Organization [facility] Address [address] [facility] [address] [place] [address] Phone Care Team Providers Care Form Builder Name Role Phone Pcp, Unknown Primary Care Provider Fe Boyd DO Primary Care Provider Encounter Details Date Type Department Care Team (Late st Contact Info) Description 11/29/2018 Procedure [facility] Radiology [address] [place] [address] Social History Tobacco Use Types Packs/Day Years Used Date Smoking Tobacco: Never Smokeless Tobacco: Never Comments Unknown Sex and Gender Information Value Date Recorded Sex Assigned at Not on file Legal Sex Female 6:41 PM EST Gender Identity Not on file Sexual Orientation Not on file documented as of this encounter Plan of Treatment Not on file documented as of this encounter Visit Diagnoses Not on filedocumented in this encounter Care Teams Form Builder Relationship Specialty Start Date End Date Pcp, Unknown PCP - General 10/16/18 01/09/19 Fe Mcnally DO [address] [facility] [place] [address] PCP - General Family Medicine 01/10/19 documented as of this encounter Additional Source Comments The information contained in this document represents components of the legal health record. It is not the complete legal health record.[facility]
--- OUTSIDE RECORDS SUMMARY | 2024-10-20 14:50 | XMS_ITS | Clinical Summary ---
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
--- OUTSIDE RECORDS SUMMARY | 2024-10-20 14:50 | XMS_ITS | Clinical Summary ---
Author Organization [facility] Address [address] [place] [address] Care Team Providers Care Concrete Journeyman Name Role Phone Fe Mcnally DO Primary Care Provider [phone] Allergies Active Allergy Reactions Criticality Noted Date [...] (1 of 2) 2016 Influenza Vaccine (#1) 2024 Pneumococcal Vaccine Aged Out No long er eligible based on patient's age to complete this topic RSV Ped < 20 months Aged Out No longe r eligible based on patient's age to complete this topic Care Teams Concrete Journeyman Relationship Specialty Start Date End Date Fe Mcnally DO [address] [place] [address] PCP - General Family Medicine 09/14/18
== END 2024-10-20 14:31 | disposition home or self-care (01) ==
LOC: HO.MRI 14:30
PROVIDERS: Visit Provider Orthopaedic Surgery
DX: S83.242A Other tear of medial meniscus, current injury, left knee, initial encounter (principal)
CPT/HCPCS: 73721

== ENCOUNTER 2024-10-30 15:01 | Outpatient (AMB) | payer MEDICARE, MEDICAID, SELFPAY ==
--- NOTE | 2024-10-30 15:08 | A.OFFVIS_ITS ---
Vital Signs 10/30/24 15:12 Height 5 ft 2 in Weight 209 lb BMI 38.2 BP 132/75 Pulse 90 Intake Visit Reasons: OV- MRI Review Of the Left Knee Intake Note: Margarita is a 59 year old female who presents today as a MRI Review Of the Left Knee,10/22/24. The patient describes her left knee pain as achy in nature. Most of the discomfort is along the medial aspect of her knee. She has undergone right total knee replacement surgery in the past. She reports minimal discomfort in her right knee. She wishes to hold off on left knee surgery if at all possible. Allergies bee stings Allergy (Uncoded 10/03/24 14:08) Anaphylaxis Medication List - Last Reconciled 10/30/24 by Faisal Schroeder MD albuterol sulfate 90 mcg/actuation (Ventolin HFA) 2 puffs inhalation Q4H PRN cetirizine 10 mg PO DAILY cholecalciferol (vitamin D3) 50 mcg PO DAILY diazepam (Valium) 10 mg PO Q24H PRN duloxetine 60 mg PO BID epinephrine 0.3 mL IM ONCE PRN gabapentin 300 mg PO BID ibuprofen 800 mg PO TID PRN lamotrigine 100 mg PO BID lamotrigine 50 mg PO DAILY levothyroxine 100 mcg PO DAILY loratadine 10 mg PO DAILY montelukast 10 mg PO DAILY omeprazole 20 mg PO BID sennosides (senna) 34.4 mg PO BID tramadol 50 mg PO Q8H PRN PFSH Surgical History (Updated 11/30/22 @ 14:37 by Ngoc Estes CMA) S/P left knee arthroscopy History of total right knee replacement Physical Exam Vital Signs: Last Vital Signs Pulse 90 10/30/24 15:12 BP 132/75 10/30/24 15:12 BMI result Body Mass Index 38.2 Const Other: Well-nourished well-developed very friendly female awake alert and oriented x3 in no acute distress Extrem Other: Bilateral lower extremity examination shows good capillary refill, no skin lesions noted, normal sensation light touch Left knee examination shows a minimal effusion, mild crepitus with range of motion, tenderness along her medial joint line, positive Yoli's test, no instability Assessment & Plan Assessment & Plan (1) Tear of medial meniscus of left knee: Code(s): S83.242A - Other tear of medial meniscus, current injury, left knee, initial encounter Category: Medical Plan Mrs. Pandey presents with intermittent left knee discomfort and mechanical symptoms due to early degenerative joint disease as well as a tear of her medial meniscus. I had a lengthy discussion with the patient regarding the treatment options. At this point the patient's symptoms are tolerable to her. She will continue with her activity modifications. She will follow up with me on an as- needed basis should her symptoms worsen in any way. I spent 20 minutes in reviewing the patient's records and imaging studies, seeing the patient and documenting in the medical record. Coding Level of Care Code Est Pt Level 3 (65571) Complex EM visit Add On G2211 Diagnoses Tear of medial meniscus of left knee S83.242A
[2024-10-30 15:12] VITALS: BP 132/75; PULSE 90; BMI 38.2
--- OUTSIDE RECORDS SUMMARY | 2024-10-30 15:56 | XMS_ITS | Clinical Summary ---
Author Organization [facility] Address [address] [place] [address] Care Team Providers Care Insolvency Consultant Name Role Phone Fe Mcnally DO Primary Care Provider [phone] Allergies Active Allergy Reactions Criticality Noted Date [...] age to complete this topic Care Teams Insolvency Consultant Relationship Specialty Start Date End Date Fe Mcnally DO [address] [place] [address] PCP - General Family Medicine 09/14/18
--- OUTSIDE RECORDS SUMMARY | 2024-10-30 15:56 | XMS_ITS | Encounter Summary ---
Author Organization [facility] Address [address] [facility] [address] [place] [address] Phone Care Team Providers Care Terra Cotta Roofer Helper Name Role Phone Pcp, Unknown Primary Care Provider Fe Boyd DO Primary Care Provider Encounter Details Date Type Department Care Team (Late st Contact Info) Description 11/29/2018 Procedure [facility]iology [address] [place] [address] Social History Tobacco Use Types Packs/Day Years [...] on filedocumented in this encounter Care Teams Terra Cotta Roofer Helper Relationship Specialty Start Date End Date Pcp, Unknown PCP - General 10/16/18 01/09/19 Fe Mcnally DO [address] [facility] [place] [address] PCP - General Family Medicine 01/10/19 documented as of this encounter Additional Source Comments The information contained in this document represents components of the legal health record. It is not the complete legal health record.[facility]
--- OUTSIDE RECORDS SUMMARY | 2024-10-30 15:56 | XMS_ITS | Data Portability ---
Author Organization [place] - [facility] Address [address] [place] [address] Assessment Encounter Date Assessment Date Assessment LastModified by Organization Details LastModified Time 09/09/2023 09/09/2023 Reason for Encounter Removeable Prosthesis [...] 3:56 PM. [id number] Not available 09/11/2024 09:39:26 10/23/2024 10/23/2024 Problems Allergi es No known drug allergies Medications No medications reported Completed Procedures D1110 - Prophylaxis - adult D0120 - Periodic oral evaluation - established patient D1330 - Oral hygiene instructions D0603 - Caries risk assessment and documentation, with a finding of high risk Completed Procedures (cont.) Patient presents to the clinic for a Periodic exam. Chief complaint: ''none '' Patient interaction: pleasant patient, tolerated treatment well. Reviewed current medical history. Contraindications to treatment: Yes/No Last Dental Visit: Oral Hygiene: Brushing 2/day, flossing 0/day Tobacco use:Non-tobacco User EXTRA ORAL EXAM: Head/Neck Exam: WNL RADIOGRAPHIC FINDINGS: Radiographic bone loss: Moderate (15-35%) Caries:NA Periapical: No signs of periapical lesions Subgingival calculus INTRAORAL EXAM: Oral Cancer Screening: WNL New Findings: Occlusion Dental -Caries:ns -Prothesis: Periodontal findings: Probing depth: 2-3mm. Inflammation, bleeding at probing. Calculus: mild Generalized: Supragingival Gingiva: [place], Oral hygiene: fair DIAGNOSIS: -Periodontal: Stage II periodontitis, generalized localized (>30% of teeth) and grading: Grade B (moderate rate) -Caries risk: High Risk - D0603, TREATMENT PLAN GIVEN. -Prophylaxis -Protheses: follow up if adjustments are necessary Notes: Findings, risks, benefits, alternatives, and consequences of no treatment explained. REFERRALS: none today Patient dismissed in good order after all questions answered. NV: Patient presents to the clinic for Adult Prophylaxis Patient interaction: pleasant patient, tolerated treatment well. Full mouth ultrasonic and hand scaling done, polished and flossed all contacts. Floss in between all teeth. Oral hygiene instructions given, including demo in brushing, flossing and use of interproximal brush. Patient was encouraged to brush teeth 2x daily for 2 minutes and floss and use interproximal brush daily. Patient dismissed in good order after all questions answered. NV: recare and follow up Additional Comments: Explained and discussed conditions, findings, and plan of care. Follow-Up/Next Visit: Next appointment date is 04/30/2025 at 10:30 AM Treating Provider: Evelyn STOKES Reason For Encounter: Recare Adult Treating Provider DIVYA Martinez , 2:39 PM. I attest that the treatment rendered today was completed. , 3:17 PM. [id number] Not available 10/24/2024 13:06:47 Plan of Treatment Reminders Order Date Submit Date Provider Last Modified By Organization Details Last Modified Time Details Appointments None record ed. Lab None record ed. Referral None record ed. Procedures None record ed. Surgeries None record ed. Imaging None record ed. Medication Orders None record ed. Patient TargetsNo targets recorded. Patient InstructionsNo instructions [...] SNOMED-CT Code Diagnosis ICD10 Code Diagnosis Note [id number] DIVYA Luong [address] [place] [address] 12/07/2022 14:05:56 12/17/2022 13:39:51 [id number] DIVYA Luong [facility] [address] [place] [address] 02/16/2023 10:04:10 02/17/2023 10:42:03 [id number] DIVYA Luong [facility] [address] [address] 03/08/2023 13:26:03 03/09/2023 12:19:28 [id number] Evelyn talley, [facility] [address] [place] [address], [place] [address] 04/22/2023 10:00:30 04/25/2023 11:02:58 [id number] Evelyn talley, [facility] [address] [place] [address], [place] [address] 07/06/2023 09:48:14 07/13/2023 11:56:45 [id number] Evelyn talley, [facility] [address] [place] [address], [place] [address] 08/03/2023 10:28:38 08/05/2023 10:57:07 [id number] Evelyn talley, [facility] [address] [place] [address], [place] [address] 09/09/2023 12:48:51 09/29/2023 10:54:52 [id number] Evelyn talley, [facility] [address] [place] [address], [place] [address] 09/12/2023 12:49:19 09/20/2023 08:48:36 [id number] Evelyn talley, [facility] [address] [place] [address], [place] [address] 07/25/2024 10:00:31 08/03/2024 14:57:10 [id number] Evelyn talley, [facility] [address] [place] [address], [place] [address] 09/10/2024 10:35:00 09/11/2024 09:39:32 [id number] Evelyn talley, [facility] [address] [place] [address], [place] [address] 10/23/2024 13:32:32 10/24/2024 13:06:53 Health Concerns Section Related Observation LastModified by Organization Detai ls LastModified Time None Recorded Concern Status LastModified by Organization Details LastModified Time None Recorded Advance Directives Directive None Recorded Payers Insurance Date Sequence Insurance Name Policy Number Policy Castellon Covered Member ID Castellon Member ID Guarantor Name 10/22/2024 [facility] 21 Margarita A Stone [id number] Margarita A Stone 07/06/2023 [place] [facility] Margarita A Stone [id number] Margarita A Stone 10/08/2024 1 [place] B[place] [facility] Margarita A Stone [id number] Margarita A Stone 10/08/2024 2 [place] [facility] Margarita A Stone [id number] Margarita A Stone 12/07/2022 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) Margarita Stone [id number] Margarita A Stone 12/07/2022 *SELF PAY* Margarita Stone Margarita A Stone OBGyn Episode No OBEpisode recorded.
--- OUTSIDE RECORDS SUMMARY | 2024-10-30 15:56 | XMS_ITS | Clinical Summary ---
Author Organization [address] [facility] Address [address] [place] [address] Phone Care Team Providers Care Facility Operations Manager Name Role Phone Fe Mcnally DO Primary Care Provider [phone] Social History Tobacco Use Types Packs/Day Years [...] Care Team (Late st Contact Info) Description 01/02/2025 3:20 PM CDT Office Visit [facility] [address] [phone] María Elena Duff [address] [phone] Health Maintenance Due Date Last Done Comments Breast Cancer Screening 1966 DTaP,Tdap,and Td Vaccines (1 - Tdap) 1985 Hepatitis B Vaccines (1 of 3 - 19+ 3-dose series) 1985 Cervical Cancer Screening: P ap Smear 09/17/1987 Pneumococcal Vaccine: 50+ Ye ars (1 of 1 - PCV) 2016 Zoster Vaccines (1 of 2) 2016 Cholesterol Screening (Lipid Panel) 03/11/2022 Colorectal Cancer Screening: Colonoscopy 03/11/2022 HIV Screening 03/11/2022 Hepatitis C Screening 03/11/2022 Medicare Annual Wellness Visit 03/11/2022 Social Influencers of Health Screening 03/11/2022 COVID-19 Vaccine (1 - 2023-2 5 season) 2023 Depression Screening 04/04/2024 Influenza Vaccine (#1) 2024 HIB Vaccines Aged [...] Documents on File Type Date Recorded 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
== END 2024-10-30 15:37 | disposition home or self-care (01) ==
LOC: HO.HOS 15:05
PROVIDERS: Visit Provider Orthopaedic Surgery
DX: S83.242A Other tear of medial meniscus, current injury, left knee, initial encounter (principal)
CPT/HCPCS: 99213; G2211

== ENCOUNTER → 2024-10-30 15:01 | Outpatient (BNVA) | payer MEDICARE, MEDICAID, SELFPAY | PROVIDERS: Visit Provider Orthopaedic Surgery | DX: S83.242A Other tear of medial meniscus, current injury, left knee, initial encounter (principal); Z96.651 Presence of right artificial knee joint | CPT/HCPCS: 99212 ==

== ENCOUNTER 2025-02-06 10:16 | Outpatient (AMB) | payer MEDICARE, MEDICAID, SELFPAY ==
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
--- NOTE | 2025-02-06 10:36 | A.OFFVIS_ITS ---
Vital Signs 02/06/25 10:45 Height 5 ft 2 in Intake Visit Reasons: Left knee pain and giving way Intake Note: Margarita is a 59 year old female who presents with complaints of progressively worsening left knee pain and giving way. The patient describes her pain as sharp in nature. Most of the pain is along the medial aspect of her knee. She did undergo right total knee replacement surgery several years ago. She reports mild discomfort in her right knee. She wishes to hold off on left total knee replacement surgery for as long as possible. She states that her left knee will give out several times per day. Her symptoms have gotten worse over the last year in spite of continued non operative treatments. She has tried Tylenol, anti-inflammatory medicines, cortisone injections, physical therapy exercises and a home exercise program which gave her minimal relief. Allergies bee stings Allergy (Uncoded 10/03/24 14:08) Anaphylaxis Medication List - Last Reconciled 02/06/25 by Faisal Schroeder MD albuterol sulfate 90 mcg/actuation (Ventolin HFA) 2 puffs inhalation Q4H PRN cetirizine 10 mg PO DAILY cholecalciferol (vitamin D3) 50 mcg PO DAILY diazepam (Valium) 10 mg PO Q24H PRN duloxetine 60 mg PO BID epinephrine 0.3 mL IM ONCE PRN gabapentin 300 mg PO BID ibuprofen 800 mg PO TID PRN lamotrigine 100 mg PO BID lamotrigine 50 mg PO DAILY levothyroxine 100 mcg PO DAILY loratadine 10 mg PO DAILY montelukast 10 mg PO DAILY omeprazole 20 mg PO BID sennosides (senna) 34.4 mg PO BID tramadol 50 mg PO Q24H PRN PFSH Surgical History S/P left knee arthroscopy History of total right knee replacement Physical Exam Const Other: Well-nourished well-developed very friendly female awake alert and oriented x3 in no acute distress Extrem Other: Left knee examination shows a minimal effusion, palpable crepitus with range of motion, positive Yoli's test, tenderness along her medial joint line, no instability Results Reviewed Results Reviewed: Standing full weight-bearing x-rays of the patient's left knee show mild to moderate diffuse degenerative changes, no acute bony abnormalities MRI of the patient's left knee shows mild to moderate diffuse degenerative changes as well as a medial meniscus tear Assessment & Plan Assessment & Plan (1) Tear of medial meniscus of left knee: Code(s): S83.242A - Other tear of medial meniscus, current injury, left knee, initial encounter Category: Medical Plan Ms. Pandey presents with progressively worsening left knee pain and mechanical symptoms due to early degenerative joint disease as well as a medial meniscus tear. I had a lengthy discussion with the patient regarding the treatment options. At this point she has failed continued non operative treatments. She wishes to hold off on left total knee replacement surgery for as long as possib le. I agree with this plan. The risks and benefits of left knee arthroscopic surgery were discussed at length with the patient. The patient wishes to proceed with surgery. Surgery will involve left knee arthroscopic partial medial meniscectomy. She does understand that she may not get 100% relief of her symptoms depending on the severity of her degenerative changes. She will be scheduled for next available date. She will follow up as instructed. I spent 20 minutes in reviewing the patient's records and imaging studies, seeing the patient and documenting in the medical record. Coding Level of Care Code Est Pt Level 3 (96534) Complex EM visit Add On G2211 Diagnoses Tear of medial meniscus of left knee S83.242A
--- OUTSIDE RECORDS SUMMARY | 2025-02-06 11:53 | XMS_ITS | Data Portability ---
Author Organization [place] [facility] [place] Address [address] [place] [address] Care Team Providers Care Doggy Daycare Activities Director Name Role Phone NICOLAS MULLINS Primary Care [...] Not available 07/02/2022 16:09:28 10/18/2022 10/18/2022 Patient presente d to the office with hopes of seeing Dr. Gallegos. She was given Dr. Gallegos's contact as being [facility]. She was offered evaluation and assessment [...] total knee replacement. Continue knee conditioning exercises. Zplo-[id number] medications as needed. Ultimate failure may occur [...] at that time. Not available 03/09/2024 15:05:30 01/11/2025 01/11/2025 HPI : Patient is here for pain regarding her right revision total knee replacement. She is 4 years from right revision total knee replacement. She states she was doing well until a couple months ago where she had a fall. She had pain in the medial aspect of the knee. She has been having pain since then. It has been steady. She did see me last year in March with some complaints of stiffness in the knee. Workup at that time was negative. It was likely hip related at that time. Physical Exam : Patient is well nourished, [...] stability, and strength. The knee moves from 0-115 degrees. The alignment of the knee is neutral. She does have some tenderness along the medial tissue of the knee joint. Muscle strength is normal. Pedal pulses are palpable. Hip examination, including flexion and internal rotation, was negative in that groin pain was not produced. Assessment/Plan : Patient is 4 years from right total knee replacement with a mechanical fall that cause increased pain. Exam, imaging, and history do not show any signs of implant related issues including loosening, malposition, instability, periprosthetic fracture, or infection. I reassured patient that there does not appear to be an implant related injury. She does likely have some soft tissue bruising and pain from the fall and this can take a while especially in the muscle that is sensitive after multiple surgeries. I recommend a course of physical therapy. She did not want to do physical therapy. I am giving her knee conditioning program. She is going to work on that. If symptoms worsen or do not improve she can let us know. Not available 01/11/2025 11:37:22 Plan of Treatment Reminders Order Date Submit Date Provider Last Modified By Organization Details Last Modified Time Details Appointments FOLLOW UP 2024 02:00P Haroon Aden MD Not available Not available Not available Lab None recorded . Referral None recorded . Procedures None recorded . Surgeries None recorded . Imaging XR, knee, 3 view 2024 025 [facility], [address], [place], [address], 01/11/2025 11:43:28 XR, knee, 3 view 2023 024 [email or web address] [facility], [address], [place], [address], 03/12/2024 06:48:31 Medication Orders None recorded . Patient TargetsNo targets recorded. Patient Instructions Encounter Date Encounter Id Patient Instructions Last Modified By Organization Details Last Modified Time 03/09/2024 [id number] AP, lateral, patellar view of the right knee demonstrate a right revision total knee replacement with components in appropriate position without any signs of hardware related complications. Not available 03/09/2024 15:05:42 01/11/2025 [id number] AP, lateral, patellar views of the right knee demonstrate a right revision total knee replacement longstem cementless components and cemented metaphyseal components with components in appropriate position without any signs of hardware related complications. Not available 01/11/2025 11:37:43 Reason for Referral None Reported. Problems Name Problem SNOMED Code Status Onset Date Resolution Date Notes Provider Name and Address Organization Details Recorded Time Problem 43825398 Active No known active problems Not Available [facility] 5 23:08:32 Triggerin g of digit 568921967 Active 2018 Trigger finger, left ring finger Not Available [facility] 5 23:08:31 Osteoarth ritis of right knee joint 93234674998 9100 Active 2018 Primary osteoarth ritis of right knee Not Available [facility] 5 23:08:31 Carpal tunnel syndrome of left wrist 65205865735 9102 Active 2018 Left carpal tunnel syndrome Not Available [facility] 5 23:08:31 Carpal tunnel syndrome of right wrist 44982674004 9108 Active 2018 Right carpal tunnel syndrome Not Available [facility] 5 23:08:32 Pain of left hand 08737231337 9103 Active 2019 Left hand pain Not Available [facility] 5 23:08:32 Pain of right knee joint 72732830609 4100 Active 2022 Faisal Schroeder MD [address],[facility] [address], [place], [address] , [place] [facility] 3 16:20:32 Pain of left knee joint 00430682335 4107 Active 2022 Faisal Schroeder MD [address], [place], [address] , [place] [facility] 3 16:21:00 Osteoarth ritis of left knee joint 57099220370 9109 Active 2022 Faisal Schroeder MD [address], [place], [address] , [place] [facility] 3 14:43:20 Arthritis of left knee joint 66519476889 67721 Active 2022 Faisal Schroeder MD [address], [place], [address] , [place] [facility] 3 16:05:31 Problem Notes None recorded. Procedures Surgical History Date Name Laterality Status Provider Name and Address Organization Details Recorded Time Total knee arthroplasty completed Farzana Zhao [facility], [facility] 07/02/2022 14:07:55 Imaging Results None recorded. [...] Not available Not available Not available 07/02/2022 07561 8003 SNOMED Farzana Zhao null, [facility] 3 14:05:03 1323 Cephalosp huber (substanc e) medicatio n Not available Not available Not available 07/02/2022 31826 7003 SNOMED Farzana Zhao null, [facility] 3 14:05:13 1324 fentanyl medicatio n Not available Not available Not available 07/02/2022 4337 RxNorm Farzana Zhao null, [facility] 3 14:05:23 1325 amiodaron e medicatio n Not available Not available Not available 07/02/2022 703 RxNorm Farzana Zhao null, [facility] 3 14:05:30 1326 Dilaudid medicatio n Not available Not available Not available 07/02/2022 67034 3 RxNorm Farzana Zhao null, [place] [facility] 3 14:05:37 1327 trimethop rim medicatio n Not available Not available Not available 07/02/2022 79377 RxNorm Farzana Zhao null, [place] [facility] 3 14:05:51 12423 sulfameth oxazole / trimethop rim medicatio n Not available Not available Not available 12/25/20242018 89108 RxNorm Not Available [facility] 5 01:13:21 76282 ciprofibr ate Not available Not available Not available Not available 12/25/20242018 66143 RxNorm Other react ion(s ): UNKNO WN Not Available [facility] 5 01:13:21 54990 hydromorp romain medicatio n Not available Not available Not available 12/25/20242018 3423 RxNorm Not Available [facility] 5 01:13:22 17675 sulfameth oxazole medicatio n Not available Not available Not available 12/25/20242018 07772 RxNorm Other react ion(s ): RASH Not Available [facility] 5 01:13:23 Medications Name Sig Start Date Stop Date [...] Not Available Not Available No t Available tizanidine 4 mg tablet TAKE 1 TABLET BY MOUTH TWICE A DAY NEEDED FOR MUSCLE SPASTICIT Y. active Not Available Not Available No t [...] TWICE A DAY FOR 90 DAYS active Not Available Not Available No t Available ondansetron HCl 4 mg tablet TAKE 1 TABLET BY MOUTH EVERY 8 HOURS NEEDED FOR NAUSEA AND VOMITING FOR 4 DAYS 03/09 completed Not Available Not Available Not Available prednisone 20 mg tablet 40 MG (2 X 20 MG) ORALLY DAILY FOR 5 DAYS 03/09 completed Not Available Not Available Not Available sennosides 8.6 mg-docusate sodium 50 mg tablet 2020 active Not Available Not Available Not Avai lable methylpredn isolone 4 mg tablet follow package direction s 2021 active Not Available Not Available Not Avai lable topiramate 25 mg tablet PLEASE SEE ATTACHED FOR DETAILED DIRECTION S 2021 active Not Available Not Available Not Avai lable tramadol 50 mg tablet TAKE 1 TABLET ORALLY EVERY 12 HOURS NEEDED FOR PAIN active Not Available Not Available No t Available acetaminoph en 500 mg tablet 2020 active Not Available Not Available Not Avai lable lamotrigine 25 mg tablet TAKE 1 TABLET BY MOUTH TWICE A DAY active Not Available Not Available No t Available levothyroxi ne 75 mcg tablet TAKE 1 TABLET BY MOUTH EVERY DAY active Not Available Not Available No t Available levothyroxi ne 100 mcg tablet TAKE 1 TABLET BY MOUTH ONCE DAILY active Not Available Not Available No t Available hydrocortis one 2.5 % topical cream with perineal applicator APPLY TO AFFECTED AREA RECTALLY TWICE A DAY NEEDED FOR HEMORRHOI DS active Not Available Not Available No t Available famotidine 20 mg tablet TAKE 1 TABLET BY MOUTH EVERY DAY FOR 7 DAYS active Not Available Not Available No t Available lorazepam 0.5 mg tablet TAKE 1 TABLET BY MOUTH ONCE A DAY NEEDED FOR AIR TRAVEL 03/09 completed Not Available Not Available Not Available methocarbam ol 750 mg tablet Take 1 tab every 8 hours as needed for spasms 06/05 completed Not Available Not Available Not Available [...] Not Available No t Available levothyroxi ne 50 mcg tablet Take 50 mcg by mouth daily. 2018 active Not Available Not Available Not Avai lable pantoprazol e 40 mg tablet,mj yed release 2020 active Not Available Not Available Not Avai lable methylpredn isolone acetate 40 mg/mL suspension for injection 08/21 completed Not Available Not Available Not Available ferrous sulfate 325 mg (65 mg iron) tablet TAKE 1 TABLET BY MOUTH EVERY DAY active Not Available Not Available No t Available levothyroxi ne 125 mcg tablet TAKE 1 TABLET BY MOUTH EVERY DAY active Not Available Not Available No t Available gabapentin 300 mg capsule TAKE 2 CAPSULES ORALLY TWICE A DAY active Not Available Not Available No t Available omeprazole 20 mg capsule,del ayed release TAKE 1 CAPSULE BY MOUTH TWICE A DAY active Not Available Not Available No t Available montelukast 10 mg tablet TAKE 1 TABLET (10 MG) BY MOUTH DAILY. active Not Available Not Available No t Available hydroxyzine HCl 25 mg tablet TAKE 1 TABLET BY MOUTH FOUR TIMES DAILY NEEDED FOR ITCHING 2020 active Not Available Not Available Not Avai lable mupirocin 2 % topical ointment APPLY TOPICALLY TWICE A DAY active Not Available Not Available No t Available warfarin 1 mg tablet take 6 tablet by mouth once daily 02/23 completed Not Available Not Available Not Available diazepam 10 mg tablet TAKE 1 TABLET BY MOUTH EVERY 24 HOURS NEEDED FOR SPASMS active Not Available Not Available No t Available epinephrine 0.3 mg/0.3 mL injection, auto-inject or INJECT 1 PEN INTRAMUSC ULARLY ONE TIME FOR ANAPHYLAX IS AND CALL 911. MAY REPEAT ONE TIME active Not Available Not Available No t Available ibuprofen 600 mg tablet 600 MG ORALLY THREE TIMES A DAY NEEDED FOR PAIN active Not Available Not Available No t Available triamcinolo ne acetonide 10 mg/mL suspension for injection 05/30 completed Not Available Not Available Not Available methylpredn isolone 4 mg tablets in [...] Not Available Not Available No t Available morphine 15 mg immediate release tablet 2020 active Not Available Not Available Not Avai lable ondansetron 4 mg disintegrat ing tablet 2020 active Not Available Not Available Not Avai lable etodolac 500 mg tablet 2018 active Not Available Not Available Not Avai lable fluticasone propionate 50 mcg/actuati on nasal spray,suspe [...] No t Available diazepam 5 mg tablet TAKE 1 TABLET BY MOUTH THREE TIMES A DAY NEEDED FOR MUSCLE SPASMS active Not Available Not Available No t Available oxycodone 5 mg tablet TAKE 1 TABLET BY MOUTH EVERY 6 HOURS FOR 7 DAYS NEEDED FOR PAIN active Not Available Not Available No t Available topiramate 50 mg tablet TAKE 1 TABLET BY MOUTH TWICE A DAY active Not Available Not Available No t Available duloxetine 60 mg capsule,del ayed release TAKE 1 CAPSULE BY MOUTH TWICE A DAY active Not Available Not Available No t Available tizanidine 2 mg capsule Take 1 capsule (2 mg total) by mouth 3 (three) times a day. 2019 active Not Available Not Available Not Avai lable hydrocodone 5 mg-acetamin ophen 300 mg tablet Take 1-2 tablets by mouth every 6 (six) hours as needed for pain. 2020 active Not Available Not Available Not Avai lable lidocaine (PF) 10 mg/mL (1 %) injection solution 08/21 completed Not Available Not Available Not Available lidocaine (PF) 20 mg/mL (2 %) injection solution 05/30 completed Not Available Not Available Not Available Symbicort 80 mcg-4.5 mcg/actuati on HFA aerosol inhaler INHALE 2 PUFFS BY MOUTH TWICE A DAY FOR 90 DAYS 03/09 completed Not Available Not Available Not Available oxycodone 10 mg tablet TAKE 1 TABLET BY MOUTH EVERY 6 HOURS,X7 DAYS NEEDED FOR PAIN active Not Available Not Available No t Available cholecalcif shiela (vitamin D3) 50 mcg (2,000 unit) capsule TAKE 1 CAPSULE BY MOUTH DAILY active Not Available Not Available No t Available GaviLyte-G 236 gram-22.74 gram-6.74 gram-5.86 gram oral solution 240 ML ORALLY ONCE USE DIRECTED active Not Available Not Available No t Available triamcinolo ne acetonide 0.1 %-emollient comb.no.45 topical cream APPLY A THIN LAYER TO THE AFFECTED AREA(S) TWICE A DAY 2018 active Not Available Not Available Not [employer] snyder lidocaine 5 % topical ointment APPLY TOPICALLY 4 TIMES DAILY NEEDED FOR PAIN 03/09 completed Not Available Not Available Not Available Eliquis 2.5 mg tablet 2020 active Not Available Not Available Not [employer] Wixela Inhub 250 mcg-50 mcg/dose powder for [...] Updated DateTime 07/02/2022 152.4 cm 41.8 kg/m2 71179.[address] [place] [facility] 07/02/2022 14:06:21 Date Recorded Body height Body mass index (BMI) Body weight Provider Name and Address Organization Details Last Updated DateTime 10/18/2022 152.4 cm 41.8 kg/m2 69090.[address] [place] [facility] 10/18/2022 14:54:43 Social History None recorded. Functional Status None [...] Diagnosis SNOMED-CT Code Diagnosis ICD10 Code Diagnosis IMO Codes Diagnosis Note 3110 MD GERRY Toro [employer] [address] [facility] [address] [place] [address] 07/02/2022 13:58:47 07/02/2022 14:52:34 Osteoarthritis of left knee joint [id number] 37846 M17.12 [id number] NORA KITCHEN PA-C [facility] [employer] [address] [facility] [address] [place] [address] 10/18/2022 14:41:29 10/19/2022 09:00:49 52181 MD GERRY Zuñiga [employer] [address] [facility] [address] [place] [address] 03/09/2024 14:29:57 03/09/2024 15:10:38 History of right total knee replacement [id number] 816154 Z96.651 [id number] Surgical follow-up 58389 4000 Z47.1 Z96.651 [id number] MD GERRY Zuñiga [employer] [address] [facility] [address] [place] [address] 01/11/2025 10:19:02 01/11/2025 11:36:55 History of right total knee replacement 0150174623 763263 Z96.651 [id number] Surgical follow-up 61712 4000 Z47.1 Z96.651 [id number] Health Concerns Section Related Observation LastModified by Organization Detai ls LastModified Time None Recorded Concern Status LastModified by Organization Details LastModified Time None Recorded Advance Directives Directive None Recorded Payers Insurance Date Sequence Insurance Name Policy Number Policy Castellon Covered Member ID Castellon Member ID Guarantor Name 01/11/2025 1 [place] [employer] Margarita Pandey [id number] Margarita Pandey 01/08/2025 2 [place] [facility] Margarita Pandey [id number] Margarita Pandey Notes Date Note Type Note Provider Name [...] well through the night. Faisal Schroeder MD [address] [place] [address], [place], [address], [place] [facility] 07/02/2022 16:09:35 OBGyn Episode No OBEpisode recorded.
--- OUTSIDE RECORDS SUMMARY | 2025-02-06 11:53 | XMS_ITS | Encounter Summary ---
Author Organization [facility] Address [address] [facility] [address] [place] [address] Phone Care Team Providers Care Die Setter Name Role Phone Pcp, Unknown Primary Care Provider Fe Boyd DO Primary Care Provider Encounter Details Date Type Department Care Team (Late st Contact Info) Description 11/29/2018 Procedure Pass [facility]iology [address] [place] [address] Social History Tobacco Use Types Packs/Day Years [...] on filedocumented in this encounter Care Teams Die Setter Relationship Specialty Start Date End Date Pcp, Unknown PCP - General 10/16/18 01/09/19 Fe Mcnally DO [address] [facility] [place] [address] PCP - General Family Medicine 01/10/19 documented as of this encounter Additional Source Comments The information contained in this document represents components of the legal health record. It is not the complete legal health record.[facility]
--- OUTSIDE RECORDS SUMMARY | 2025-02-06 11:53 | XMS_ITS | Clinical Summary ---
Author Organization [facility] Address [address] [place] [address] Care Team Providers Care Binder Cutter Hand Name Role Phone Fe Mcnally DO Primary Care Provider [phone] Allergies Active Allergy Reactions Criticality Noted Date [...] age to complete this topic Care Teams Binder Cutter Hand Relationship Specialty Start Date End Date Fe Mcnally DO [address] [place] [address] PCP - General Family Medicine 09/14/18
--- OUTSIDE RECORDS SUMMARY | 2025-02-06 11:53 | XMS_ITS | Clinical Summary ---
Author Organization [facility] Address [address] [place] [address] Phone Care Team Providers Care Account Manager Name Role Phone Fe Mcnally DO Primary Care Provider [phone] Allergies Active Allergy Reactions Criticality Noted Date Comments Amiodarone 01/02/2025 Other Reaction(s): Amoxycillin allergy Cephalosporins 01/02/2025 Ciprofibrate 09/14/2018 Other reaction(s): UNKNOWN Ciprofloxacin 01/02/2025 Fentanyl 09/14/2018 Hydromorphone 01/02/2025 Metronidazole 01/02/2025 Pregabalin 01/02/2025 Sulfadiazine 01/02/2025 Sulfamethoxazole-Trimethopri m 01/02/2025 Other Reaction(s): itchy Trimethoprim 02/09/2019 Other reaction(s): RASH Vancomycin 01/02/2025 Medications acetaminophen (TYLENOL) 500 mg tablet 02/14/20 21 Active albuterol HFA (PROAIR HFA ; PROVENTIL HFA ; VENTOLIN HFA) 90 mcg/actuation inhaler 05/31/19 20 Active apixaban (Eliquis) 2.5 mg tablet 02/14/20 21 Active benzonatate (TESSALON) 100 mg capsule Take 1 capsule (100 mg total) by mouth 3 (three) times a day if needed. for cough 04/26/19 25 Active budesonide-formote roL (SYMBICORT) 160-4.5 mcg/actuation inhaler INL 2 PFS PO BID 11/29/19 20 Active cetirizine (ZyrTEC) 10 mg tablet Take 1 tablet (10 mg total) by mouth 1 (one) time each day. 11/23/19 25 Active cholecalciferol (VITAMIN D-3) 50 mcg (2,000 unit) capsule Take 1 capsule (2,000 Units total) by mouth 1 (one) time each day. 11/23/19 25 Active diazePAM (VALIUM) 10 mg tablet TAKE 1 TABLET BY MOUTH EVERY 24 HOURS NEEDED FOR SPASMS 08/23/19 25 Active docusate sodium (COLACE) 100 mg tablet Take 1 tablet (100 mg total) by mouth. 04/28/19 13 Active DULoxetine (CYMBALTA) [address] capsule Take 1 capsule (60 mg total) by mouth 2 (two) times a day. 11/23/19 25 Active etodolac (LODINE) 500 mg tablet 08/27/19 19 Active famotidine (PEPCID) 20 mg tablet Take 1 tablet (20 mg total) by mouth 1 (one) time each day. for 7 days 06/14/19 25 Active ferrous sulfate 325 mg (65 mg elemental iron) tablet Take 1 tablet (325 mg total) by mouth 1 (one) time each day. 10/27/19 25 Active fluticasone/umecli din/vilanter (TRELEGY ELLIPTA INHL) Inhale 1 puff by mouth 1 (one) time each day. 08/31/19 22 Active fluticasone furoate (Arnuity Ellipta) 100 mcg/actuation blister with device inhaler 05/31/19 20 Active gabapentin (NEURONTIN) 300 mg capsule 01/02/20 25 Active HYDROcodone-acetam inophen (NORCO) 5-325 mg per tablet TAKE 1 TABLET BY MOUTH THREE TIMES A DAY NEEDED FOR PAIN FOR 3 DAYS 10/19/19 25 Active hydrocortisone (ANUSOL-HC) 2.5 % rectal cream APPLY TO AFFECTED AREA RECTALLY TWICE A DAY NEEDED FOR HEMORRHOIDS 09/14/19 25 Active hydrOXYzine HCL (ATARAX) 25 mg tablet TAKE 1 TABLET BY MOUTH FOUR TIMES DAILY NEEDED FOR ITCHING 02/26/20 21 Active ibuprofen (ADVIL,MOTRIN) 800 mg tablet Take 1 tablet (800 mg total) by mouth 3 (three) times a day if needed. 02/17/20 24 Active lamoTRIgine (LaMICtal) 100 mg tablet Take 1 tablet (100 mg total) by mouth 2 (two) times a day. 04/26/19 25 Active levothyroxine (SYNTHROID, LEVOTHROID) 125 mcg tablet Take 1 tablet (125 mcg total) by mouth 1 (one) time each day. 12/13/19 25 Active loratadine (CLARITIN) 10 mg tablet Take 1 tablet (10 mg total) by mouth 1 (one) time each day. 11/23/19 25 Active methylPREDNISolone (MEDROL DOSPAK) 4 mg tablet TAKE 6 TABLETS ON DAY 1 DIRECTED ON PACKAGE AND DECREASE BY 1 TAB EACH DAY FOR A TOTAL OF 6 DAYS 06/14/19 25 Active montelukast (SINGULAIR) 10 mg tablet Take 1 tablet (10 mg total) by mouth 1 (one) time each day. 09/30/19 25 Active morphine (MSIR) 15 mg tablet 03/22/20 21 Active omeprazole (PriLOSEC) [address] capsule Take 1 capsule (20 mg total) by mouth 2 (two) times a day. 11/09/19 25 Active ondansetron ODT (ZOFRAN-ODT) 4 mg disintegrating tablet 02/14/20 21 Active oxyCODONE (ROXICODONE) 10 mg immediate release tablet TAKE 1 TABLET BY MOUTH EVERY 6 HOURS,X7 DAYS NEEDED FOR PAIN 05/23/19 25 Active pantoprazole (PROTONIX) 40 mg EC tablet 02/14/20 21 Active senna-docusate (PERICOLACE) 8.6-50 mg per tablet 02/14/20 21 Active senna 8.6 mg tablet TAKE 4 TABLETS BY MOUTH TWICE A DAY FOR 90 DAYS 11/11/19 25 Active tiZANidine (ZANAFLEX) 4 mg tablet 12/29/19 25 Active topiramate (TOPAMAX) 25 mg tablet PLEASE SEE ATTACHED FOR DETAILED DIRECTIONS 07/22/19 22 Active traMADoL (ULTRAM) 50 mg tablet take 1 tablet orally every 12 hours as needed for pain 12/08/19 25 Active triamcinolone acetonide (KENALOG-40) 40 mg/mL injection 1 mL (40 mg total) by Other route. 04/15/19 22 025 Discontin ued(Thera py completed ) Active Problems Problem Noted Date Diagnosed Date Left elbow pain 02/06/2025 History of cervical spinal surgery 02/06/2025 Overview (02/06/2025): Patient appears to have had a mid cervical procedure. She was unclear on the levels. This has been done within the last 2 years. Knee pain 01/02/2025 History of cholecystectomy 01/02/2025 Foot pain, right 01/02/2025 Bursitis of left hip 01/02/2025 Bipolar disorder (CMS/[facility] V24, CMS/[facility] V28) 04/2024 Obesity (BMI 30-39.9) 01/02/2025 Myofascial pain 01/02/2025 Low back pain 01/02/2025 Osteoarthritis 01/02/2025 Cubital tunnel syndrome on left 12/15/2022 Radiculopathy affecting upper extremity 04/15/19 Overview (01/02/2025): Last Assessment & Plan: I was asked to see this patient as a second opinion from Dr. Brar. She was previously seen in our practice by Dr. Marcus's in August 2020 and no surgery was indicated. She was referred to physical therapy for treatment of her neck pain and failed to improve. She describes right greater than left arm weakness and that she cannot hold up a gallon of milk. She states that her head feels heavy like a bowling ball in her neck is also heavy and sore. She also describes that the fourth and fifth digits of her left hand locked up since her left carpal tunnel release and that both arms become numb sporadically throughout the day and night. On exam, there is no step-off or deformity of the cervical spine. Rotation is 45 degrees to the left, 60 degrees to the right, strength 5/5, reflexes are 1+ at the biceps, 2+ at the triceps and hyporeflexic at the brachioradialis. There is no Veronica sign or any myelopathic findings. Review of the studies include cervical spine x-ray from 04/14/2021 which shows straightening of the normal lordosis and a question of a left C6-7 mild foraminal narrowing. Cervical spine MRI at [facility] dated 04/26/2021 shows straightening of the lordosis and broad disc osteophytes at C4-5 and C5-6 without significant foraminal narrowing. There is no cord compression at any level. There is no change from the prior study on 08/14/2019. An EMG of the upper extremities from 07/14/2021 shows bilateral carpal tunnel syndrome rated mild to moderate and mild bilateral ulnar neuropathy. I reviewed this in detail with Ms. Pandey and do not feel that any surgical procedure would for her neck would improve her symptoms. She should continue neck stabilization strengthening exercises at home and follow-up with Dr. Schroeder who she sees for her right shoulder. Trigger thumb, right thumb 04/15/2021 Left hand pain 04/25/2019 Right carpal tunnel syndrome 03/14/2019 Primary osteoarthritis of right knee 01/30/2019 Trigger finger, left ring finger 12/13/2018 Encounters Date Type Department Care Team Description 02/05/2025 3:00 PM EST Office Visit Orthopedic Surgery - [address] [place] [address] Rubi Brar MD Cubital tunnel syndrome on left (Primary Dx); History of cervical spinal surgery from Last 3 Months Social History Tobacco Use Types Packs/Day Years [...] 12/14/2022 11:38 AM EDT Plan of Treatment Scheduled Procedures Name Priority Associated Diagnoses Date/Ti me DECOMPRESSION ULNAR NERVE Cubital tunnel syndrome on left Health Maintenance Due Date Last Done Comments Breast Cancer Screening 1965 Colorectal Cancer Screening: Colonoscopy 1966 Hepatitis B Vaccines (1 of 3 - 19+ 3-dose series) 1985 Cervical Cancer Screening: P ap Smear 09/17/1987 Pneumococcal Vaccine: 50+ Ye ars (1 of 1 - PCV) 2016 Zoster Vaccines (1 of 2) 2016 Cholesterol Screening (Lipid Panel) 03/11/2022 HIV Screening 03/11/2022 Hepatitis C Screening 03/11/2022 Medicare Annual Wellness Visit 03/11/2022 Social Influencers of Health Screening 03/11/2022 Depression Screening 04/04/2024 COVID-19 Vaccine (1 - 2023-2 5 season) 2024 Influenza Vaccine (#1) 2024 02/10/2019 DTaP,Tdap,and Td Vaccines (2 - Td or Tdap) 12/18/2033 12/19/2023 RSV Immunization Adult Patie nts (1 - 1-dose 75+ series) 2041 HIB Vaccines Aged Out No longer eligi [...] on patient's age to complete this topic Goals Goal Patient Goal Type Associated Problems Recent Progress Patient-Stated? Author Autogenerat ed Goal Care Plan Autogenerated Problem No Rubi Brar MD Procedures Procedure Name Priority Date/Time Associated Diagnosis Comments XR ELBOW 3+ VIEWS LEFT Routine 02/05/2025 3:52 PM EST Left elbow pain from Last 3 Months Results * XR Elbow 3+ Views Left [...] maintained. 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
--- OUTSIDE RECORDS SUMMARY | 2025-02-06 11:54 | XMS_ITS | Clinical Summary ---
Author Organization [facility] Address [address] [address] Phone Care Team Providers Care Brazing Machine Setter Name Role Phone Dali, Fe HugoRubi Primary Care Provider Allergies No known active allergies Medications traMADol (ULTRAM) 50 mg tablet take 2 tablet by mouth three times a day 09/05/2018 Active omeprazole (PRILOSEC) 20 MG capsule Take 20 mg by mouth. 06/30/2018 Active cetirizine (ZYRTEC) 10 MG tablet 08/29/2018 Active cholecalciferol (VITAMIN D3) 2,000 unit capsule 11/24/2018 Active DULoxetine (CYMBALTA) 60 MG capsule take 2 capsule by mouth every morning 08/29/2018 Active lamoTRIgine (LAMICTAL) 25 MG tablet 08/08/2018 Active Active Problems No known active problems Social History Tobacco Use Types Packs/Day Years Used Date Smoking Tobacco: Never Smokeless Tobacco: Never Education Answer Date Recorded Are you interested in more education? Not on mariam e 08/08/2022 Are you concerned about learning? Not on file 08/08/2022 No 08/08/2022 No 08/08/2022 Digital Access Answer Date Recorded No 08/29/2022 No 08/29/2022 No 08/29/2022 Reliable internet access at home? Not on file 08/29/2022 Device with a working camera? Not on file Comments Unknown Sex and Gender Information Value Date Recorded Sex Assigned at Not on file Legal Sex Female 6:41 PM EST Gender Identity Not on file Sexual Orientation Not on file Last Filed Vital Signs Vital Sign Reading Time Taken Comments Blood Pressure - - Pulse - - Temperature 36.2 C (97.1 F) 01/10/2019 1:02 PM EDT Respiratory Rate - - Oxygen Saturation - - Inhaled Oxygen Concentration - - Weight 88.9 kg (195 lb 15.8 oz) 01/10/2019 1:02 PM EDT Height 157.5 cm (5' 2.01 ) 01/10/2019 1:02 PM ED T Body Mass Index 35.84 01/10/2019 1:02 PM EDT Plan of Treatment Health Maintenance Due Date Last Done Comments Adult Td,Tdap Booster 1966 LIPID PANEL 1966 DEPRESSION SCREENING 1978 HEPATITIS C SCREENING 1984 HIV ONE-TIME SCREENING (18-6 5 YEARS) 1984 PAP SMEAR 09/17/1987 MAMMOGRAM 2006 COLOGUARD 09/17/2011 COLONOSCOPY 09/17/2011 COLORECTAL CANCER SCREENING 09/17/2011 FIT TEST 09/17/2011 FOBT 09/17/2011 SIGMOIDOSCOPY 09/17/2011 VIRTUAL COLONOSCOPY 09/17/2011 PNEUMOCOCCAL VACCINES (50+ y ears) (1 of 1 - PCV) 2016 ZOSTER VACCINES (1 of 2) 2016 INFLUENZA VACCINE (#1) 2024 02/10/2019 COVID-19 VACCINE (1 - 2024-2 6 season) 2024 RSV VACCINE (1 - 1-dose 75+ series) 2041 SMOKING STATUS SCREENING (On ce After 26 Yrs) Completed 11/29/2018 HEPATITIS A VACCINES Aged Out No long er eligible based on patient's age to complete this topic HIB VACCINES Aged Out No longer eligi ble based on patient's age to complete this topic MENINGOCOCCAL VACCINES (ACWY) Aged Out No longer eligible based on patient's age to complete this topic MENINGOCOCCAL VACCINES (B) Aged Out N o longer eligible based on patient's age to complete this topic Medical Devices Not on file Insurance MEDICARE PART A & B [place] MED[place] PART A & [address] [place] [address]HEALTH MEDICARE PART A & [place] MED[place] PART A & B [facility] Care Teams Brazing Machine Setter Relationship Specialty Start Date End Date Fe Mcnally DO [address] [place] [address] PCP - General Family Medicine 01/10/19 Additional Source Comments The information contained in this document represents components of the legal health record. It is not the complete legal health record.[facility]
== END 2025-02-06 10:57 | disposition home or self-care (01) ==
LOC: HO.HOS 10:17
PROVIDERS: Visit Provider Orthopaedic Surgery
DX: S83.242A Other tear of medial meniscus, current injury, left knee, initial encounter (principal)
CPT/HCPCS: 99214; G2211

== ENCOUNTER → 2025-02-06 10:16 | Outpatient (BNVA) | payer MEDICARE, MEDICAID, SELFPAY | PROVIDERS: Visit Provider Orthopaedic Surgery | DX: S83.242A Other tear of medial meniscus, current injury, left knee, initial encounter (principal) | CPT/HCPCS: 99212 ==

== ENCOUNTER 2025-03-25 07:42 | Day surgery (SDC) | payer MEDICARE, MEDICAID, SELFPAY ==
--- OUTSIDE RECORDS SUMMARY | 2025-03-05 16:21 | XMS_ITS | Clinical Summary ---
Author Organization [facility] Address [address] [place] [address] Care Team Providers Care Last Ironer Name Role Phone Fe Mcnally DO Primary Care Provider [phone] Allergies Active Allergy Reactions Criticality Noted Date [...] age to complete this topic Care Teams Last Ironer Relationship Specialty Start Date End Date Fe Mcnally DO [address] [place] [address] PCP - General Family Medicine 09/14/18
--- OUTSIDE RECORDS SUMMARY | 2025-03-05 16:21 | XMS_ITS | Data Portability ---
Author Organization [place] - [facility] Address [address] [place] [address] Assessment Encounter Date Assessment Date Assessment LastModified [...] at probing. Calculus: mild Generalized: Supragingival Gingiva: [place], Oral hygiene: fair DIAGNOSIS: -Periodontal: Stage II [...] Last Modified Time Details Appointments Dental 60 2025 10:30A M DIVYA Hendrix Not available Not [...] ICD10 Code Diagnosis IMO Codes Diagnosis Note [id number] DIVYA Luong [facility] [address] [place] [address] 12/07/2022 14:05:56 12/17/2022 13:39:51 [id number] DIVYA Luong [facility] [address] [place] [address] 02/16/2023 10:04:10 02/17/2023 10:42:03 [id number] DIVYA Luong [place] [address] [place] [address] 03/08/2023 13:26:03 03/09/2023 12:19:28 [id number] Evelyn talley, [facility] [address] [place] [address], [place] [address] 04/22/2023 10:00:30 04/25/2023 11:02:58 [id number] Evelyn talley, [facility] [address] [place] [address], [place] [address] 07/06/2023 09:48:14 07/13/2023 11:56:45 [id number] Evelyn talley, [facility] [address] [place] [address] 08/03/2023 10:28:38 08/05/2023 10:57:07 [id number] Evelyn talley, [facility] [address] [place] [address] 09/09/2023 12:48:51 09/29/2023 10:54:52 [id number] Evelyn talley, [facility] [address] [place] [address], [place] [address] 09/12/2023 12:49:19 09/20/2023 08:48:36 [id number] Evelyn talley, [facility] [address] [place] [address], [place] [address] 07/25/2024 10:00:31 08/03/2024 14:57:10 [id number] Evelyn talley, [facility] [address] [place] [address], [place] [address] 09/10/2024 10:35:00 09/11/2024 09:39:32 [id number] Evelyn Daughertycrys talley, [facility] [address] [place] [address], [place] [address] 10/23/2024 13:32:32 10/24/2024 13:06:53 Health Concerns Section Related Observation LastModified by Organization Detai ls LastModified Time None Recorded Concern Status LastModified by Organization Details LastModified Time None Recorded Advance Directives Directive None Recorded Payers Insurance Date Sequence Insurance Name Policy Number Policy Castellon Covered Member ID Castellon Member ID Guarantor Name 10/22/2024 [place] 21 Margarita A Stone [id number] Margarita A Stone 07/06/2023 [place] Margarita A Stone [id number] Margarita A Stone 10/08/2024 1 [place] [employer] Margarita A Stone [id number] Margarita A Stone 10/08/2024 2 [place] Margarita A Stone [id number] Margarita A Stone 12/07/2022 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
--- OUTSIDE RECORDS SUMMARY | 2025-03-05 16:21 | XMS_ITS | Clinical Summary ---
Author Organization [facility] Address [address] [address] Phone Care Team Providers Care Insulator Tester Name Role Phone Dali, Fe HugoRubi Primary [...] B [place] MEDICARE PART A & B [address] [place], [place] [address]HEALTH MEDICARE PART A & [place] & [place] & [place] B [facility] Care Teams Insulator Tester Relationship Specialty Start Date End Date Fe Mcnally DO [address] [place] [address] PCP - General Family Medicine 01/10/19 Additional Source Comments The information contained in this document represents components of the legal health record. It is not the complete legal health record.[facility]
--- OUTSIDE RECORDS SUMMARY | 2025-03-05 16:21 | XMS_ITS | Encounter Summary ---
Author Organization [facility] Address [address] [facility] [address] [place] [address] Phone Care Team Providers Care Lip Cutter Name Role Phone Pcp, Unknown Primary Care Provider Fe Boyd DO Primary Care Provider Encounter Details Date Type Department Care Team (Late st Contact Info) Description 11/29/2018 Procedure Pass [facility] Radiology [address] [place] [address] Social History Tobacco Use Types Packs/Day Years [...] on filedocumented in this encounter Care Teams Lip Cutter Relationship Specialty Start Date End Date Pcp, Unknown PCP - General 10/16/18 01/09/19 Fe Mcnally DO [address] [facility] [address] [address] PCP - General Family Medicine 01/10/19 documented as of this encounter Additional Source Comments The information contained in this document represents components of the legal health record. It is not the complete legal health record.[facility]
[2025-03-11 09:28] VITALS: BMI 39.9
--- NOTE | 2025-03-11 12:01 | HO.ANESPROP2 ---
Documented by User: Mayte Sahu NP 03/11/25 12:03 HPI - Anesthesia Eval Consult details Narrative: 59yo F for Left Knee Arthroscopy,partial Medial meniscectomy, 03/25/25 PMFSH Active Problems Active Problems: All Active Problems Tear of medial meniscus of left knee (Acute) Right knee pain (Acute) Arthritis of both knees (Acute) Left knee pain (Acute) Past Medical History Medical History Sciatica Cervical radiculopathy Lumbar spondylolysis Arthritis DVT (deep venous thrombosis) Bipolar disorder GERD (gastroesophageal reflux disease) Hypothyroid Migraines Fibromyalgia LACHO (obstructive sleep apnea) Moderate persistent asthma Surgical History Surgical History History of esophagogastroduodenoscopy (EGD) H/O colonoscopy History of partial hysterectomy History of ankle surgery Hx of hernia repair Hx of cholecystectomy S/P left knee arthroscopy History of total right knee replacement Social History Social History Are you a primary senior care specialist to a significant other at home: No Do you presently have visiting nurse or other home services: No Patient Tobacco Use Status: Former Tobacco user Tobacco use type: Cigarette Years Smoked: 1 Use of substances other than those prescribed or required for medical reasons: No Have you been hit, kicked, punched, or otherwise hurt by someone within the past year? If so, by whom?: No Spiritual Healthcare Practices: no Latter Day Healthcare Practices: no Cultural Healthcare Practices: no Are you DNR?: No Advance Directives on File: No FDLMP: n/a Meds Allergies Allergy/AdvReac Type Severity Reaction Status Date / Time bee pollen (bee stings) Allergy Severe Anaphylaxis Verified 03/08/25 12:35 amoxicillin Allergy Intermediate worsens Verified 03/11/25 09:21 infection metronidazole (From Flagyl) Allergy Intermediate Shortness Verified 03/11/25 09:21 of Breath pregabalin Allergy Intermediate extremity Verified 03/11/25 09:21 swelling Sulfa (Sulfonamide Allergy Intermediate Rash Verified 03/11/25 09:21 Antibiotics) vancomycin Allergy Intermediate Shortness Verified 03/11/25 09:21 of Breath cephalexin (From Keflex) Allergy Unknown Unknown Verified 03/11/25 09:21 ciprofloxacin Allergy Unknown Unknown Verified 03/11/25 09:21 hydromorphone AdvReac Intermediate slows Verified 03/11/25 09:21 breathing Home Medications ?Medication ?Instructions ?Recorded ?Confirmed ?Last Taken ?Type albuterol sulfate 90 mcg/actuation 2 puff inhalation Q4H PRN 11/30/22 03/08/25 Unknown History aerosol inhaler (Ventolin HFA) Shortness Of Breath Or Wheezing cetirizine 10 mg tablet 10 mg PO DAILY 11/30/22 03/08/25 Unknown History cholecalciferol (vitamin D3) 50 50 mcg PO DAILY 11/30/22 03/08/25 Unknown History mcg (2,000 unit) capsule duloxetine 60 mg capsule,delayed 60 mg PO BID 11/30/22 03/08/25 Unknown History release epinephrine 0.3 mg/0.3 mL 0.3 ml IM ONCE PRN Anaphylaxis 11/30/22 03/08/25 Unknown History injection, auto-injector lamotrigine 100 mg tablet 100 mg PO BID 11/30/22 03/08/25 Unknown History lamotrigine 25 mg tablet 50 mg PO DAILY 11/30/22 03/08/25 Unknown History loratadine 10 mg tablet 10 mg PO DAILY 11/30/22 03/08/25 Unknown History montelukast 10 mg tablet 10 mg PO DAILY 11/30/22 03/08/25 Unknown History omeprazole 20 mg capsule,delayed 20 mg PO BID 11/30/22 03/08/25 Unknown History release sennosides 8.6 mg tablet (senna) 34.4 mg PO BID 11/30/22 03/08/25 Unknown History gabapentin 300 mg capsule 300 mg PO BID 03/20/24 03/08/25 Unknown History ibuprofen 800 mg tablet 800 mg PO TID PRN pain 03/20/24 03/08/25 Unknown History levothyroxine 100 mcg tablet 100 mcg PO DAILY 10/03/24 03/08/25 Unknown History Exam Height,Weight and Vital Signs: Height 5 ft 2 in Weight 98.88 kg Pertinent Lab Results Pertinent Lab Results: CBC 12/2024 and BMP 02/2025 from outside facility WNL Narrative Narrative: EKG 04/2024 NSR @ 65 T wave inversion v1-v3, similiar to baseline Assessment and Plan Assessment Anesthesia Assessment: Chart Reviewed Documented by User: Joanna Rocha MD 03/25/25 09:17 PMFSH Past Medical History Medical History Sciatica Cervical radiculopathy Lumbar spondylolysis Arthritis DVT (deep venous thrombosis) Bipolar disorder GERD (gastroesophageal reflux disease) Hypothyroid Migraines Fibromyalgia LACHO (obstructive sleep apnea) Moderate persistent asthma Family History Family history of problems with anesthesia: No Surgical History Surgical History History of esophagogastroduodenoscopy (EGD) H/O colonoscopy History of partial hysterectomy History of ankle surgery Hx of hernia repair Hx of cholecystectomy S/P left knee arthroscopy History of total right knee replacement History of Problems with Anesthesia: No Social History Social History Are you a primary senior care specialist to a significant other at home: No Do you presently have visiting nurse or other home services: No Patient Tobacco Use Status: Former Tobacco user Tobacco use type: Cigarette Years Smoked: 1 Use of substances other than those prescribed or required for medical reasons: No Have you been hit, kicked, punched, or otherwise hurt by someone within the past year? If so, by whom?: No Spiritual Healthcare Practices: no Latter Day Healthcare Practices: no Cultural Healthcare Practices: no Are you DNR?: No Advance Directives on File: No FDLMP: n/a Meds Allergies Allergy/AdvReac Type Severity Reaction Status Date / Time bee pollen (bee stings) Allergy Severe Anaphylaxis Verified 03/08/25 12:35 amoxicillin Allergy Intermediate worsens Verified 03/11/25 09:21 infection metronidazole (From Flagyl) Allergy Intermediate Shortness Verified 03/11/25 09:21 of Breath pregabalin Allergy Intermediate extremity Verified 03/11/25 09:21 swelling Sulfa (Sulfonamide Allergy Intermediate Rash Verified 03/11/25 09:21 Antibiotics) vancomycin Allergy Intermediate Shortness Verified 03/11/25 09:21 of Breath cephalexin (From Keflex) Allergy Unknown Unknown Verified 03/11/25 09:21 ciprofloxacin Allergy Unknown Unknown Verified 03/11/25 09:21 hydromorphone AdvReac Intermediate slows Verified 03/11/25 09:21 breathing Home Medications ?Medication ?Instructions ?Recorded ?Confirmed ?Last Taken ?Type albuterol sulfate 90 mcg/actuation 2 puff inhalation Q4H PRN 11/30/22 03/08/25 Unknown History aerosol inhaler (Ventolin HFA) Shortness Of Breath Or Wheezing cetirizine 10 mg tablet 10 mg PO DAILY 11/30/22 03/08/25 Unknown History cholecalciferol (vitamin D3) 50 50 mcg PO DAILY 11/30/22 03/08/25 Unknown History mcg (2,000 unit) capsule duloxetine 60 mg capsule,delayed 60 mg PO BID 11/30/22 03/08/25 Unknown History release epinephrine 0.3 mg/0.3 mL 0.3 ml IM ONCE PRN Anaphylaxis 11/30/22 03/08/25 Unknown History injection, auto-injector lamotrigine 100 mg tablet 100 mg PO BID 11/30/22 03/08/25 Unknown History lamotrigine 25 mg tablet 50 mg PO DAILY 11/30/22 03/08/25 Unknown History loratadine 10 mg tablet 10 mg PO DAILY 11/30/22 03/08/25 Unknown History montelukast 10 mg tablet 10 mg PO DAILY 11/30/22 03/08/25 Unknown History omeprazole 20 mg capsule,delayed 20 mg PO BID 11/30/22 03/08/25 Unknown History release sennosides 8.6 mg tablet (senna) 34.4 mg PO BID 11/30/22 03/08/25 Unknown History gabapentin 300 mg capsule 300 mg PO BID 03/20/24 03/08/25 Unknown History ibuprofen 800 mg tablet 800 mg PO TID PRN pain 03/20/24 03/08/25 Unknown History levothyroxine 100 mcg tablet 100 mcg PO DAILY 10/03/24 03/08/25 Unknown History Exam Airway Mallampati Class: III TM Dist: >3cm Neck ROM: Full Heart: rrr Lungs: cta Assessment and Plan Assessment Anesthesia Assessment: Anesthesia Plan Discussed Final Anesthetic Review Family History of Problems with Anesthesia: No History of Problems with Anesthesia: No NPO: Yes ASA Class: III Final Preanesthetic Review: No Changes in Pt Med Stat, Meds/Allgs Chart Reviewed, Consent Obtained/Reviewed and Anes Risks/Benef Reviewed Patient Risk: Intermediate Procedure Risk: Low Anesthetic Plan Anesthetic Plan: GA and Agree w/ Assess. and Plan Disposition: Standard PACU
[2025-03-25] VITALS (14 sets, daily range): BP systolic 100–153; BP diastolic 49–92; PULSE 81–121; RESP 14–24; TEMP 36.2–37; O2SAT 97–100
[2025-03-25] MEDS: Lactated Ringers 1,000 ML 100 ML IVCONT (08:20)
--- NOTE | 2025-03-25 11:36 | PC.NURSE ---
Bethanie Patiño RN brought cellphone and glasses to in waiting room.
--- NOTE | 2025-03-25 12:35 | PM.OP ---
Brief Operative Note Date of Service: 03/25/25 Pre-op diagnosis: Left knee medial meniscus tear, left knee degenerative joint disease Post-op diagnosis: same Procedure: Left knee arthroscopic partial medial meniscectomy, left knee arthroscopic chondroplasty of the undersurface of the patella as well as the medial femoral condyle Implants: none Surgeon: Faisal Schroeder MD Anesthesia: GLMA Was an Computer Sales[employer] Retail used for this Procedure?: No Estimated blood loss (mL): 10 Pathology: none sent Condition: stable Disposition: PACU
--- NOTE | 2025-03-25 12:36 | W.PM.OPN ---
Operative Note Operative Note Date of Service: 03/25/25 Narrative: After the patient was identified as Margarita Pandey and her left knee was initialed by myself they were brought to the operating room where general anesthesia was induced by the anesthesiologist in routine fashion. Because of the patient's allergy to cephalosporins and amoxicillin she was given 900 mg of IV clindamycin preoperatively for infection prophylaxis. The patient's left lower extremity was prepped and draped in sterile fashion. A formal time-out was completed. Marcaine was injected into the planned incision sites as well as the patient's left knee joint. A #11 scalpel blade was used to make an anterolateral portal 1 cm proximal to the joint line and 1 cm lateral to the patellar tendon. Blunt trocar technique was used to enter the suprapatellar pouch with the knee in extension. Diagnostic arthroscopy showed multiple bands of thickened plica which would be excised at the end of the procedure. There were no loose bodies or abnormalities found in either the medial or lateral gutters. The articular surface of the patella showed diffuse grades 2 and 3 degenerative changes. The trochlear groove articular surface showed diffuse grades 1 and 2 degenerative changes. The patient's knee was flexed to 45 degrees and a valgus force was placed upon it. The medial compartment was entered. An anteromedial portal was made 1 cm proximal to the joint line and 1 cm medial to the patellar tendon. Probing of the medial meniscus showed a radial tear of the posterior horn. A partial medial meniscectomy was performed using the arthroscopic shaver. Following the partial meniscectomy the remainder of the meniscus tissue was stable. There were diffuse grades 2 and 3 degenerative changes of the medial femoral condyle as well as grades 1 and 2 degenerative changes of the medial tibial plateau. The articular surface of the medial femoral condyle was then made smooth using the arthroscopic shaver. The articular surface of the medial tibial plateau was already smooth so no chondroplasty was indicated. The patient's knee was placed into a neutral position. There was no injury to the anterior cruciate ligament. The patient's knee was then placed in the figure of 4 position and the lateral compartment was entered. There was no evidence of lateral meniscus tearing. There were minimal degenerative changes of the lateral femoral condyle and lateral tibial plateau. The patient's knee was once again brought into extension and the suprapatellar pouch was entered. The arthroscopic shaver and the ArthroCare Wand were used to excise the thickened bands of plica. The undersurface of the patella was then made smooth using the arthroscopic shaver. The articular surface of the trochlear groove was already smooth so no chondroplasty was indicated. The knee joint was irrigated and then drained. All arthroscopic instruments were removed. The 2 portals were closed with 3-0 nylon interrupted suture. The knee joint was injected with Marcaine. Dry sterile dressing and Tawanda bandages were placed over the patient's knee. The patient was awoken and extubated in the operating room. The patient was transferred to the recovery room in stable condition.
== END 2025-03-25 14:24 | disposition home or self-care (01) ==
PROVIDERS: PCP Internal Medicine; Visit Provider Orthopaedic Surgery
PROC: (CPT 29870; principal; 2025-03-25 10:30)
DX: S83.242A Other tear of medial meniscus, current injury, left knee, initial encounter (principal); M17.12 Unilateral primary osteoarthritis, left knee; M67.52 Plica syndrome, left knee; M25.562 Pain in left knee; M23.52 Chronic instability of knee, left knee; M79.7 Fibromyalgia; J45.40 Moderate persistent asthma, uncomplicated; G47.33 Obstructive sleep apnea (adult) (pediatric); Z86.718 Personal history of other venous thrombosis and embolism; Z96.651 Presence of right artificial knee joint; M47.816 Spondylosis without myelopathy or radiculopathy, lumbar region; M54.30 Sciatica, unspecified side; Z79.1 Long term (current) use of non-steroidal anti-inflammatories (NSAID); Z79.899 Other long term (current) drug therapy; Z91.030 Bee allergy status; Z88.1 Allergy status to other antibiotic agents; Z88.2 Allergy status to sulfonamides; Z88.8 Allergy status to other drugs, medicaments and biological substances; Z98.890 Other specified postprocedural states; Z87.891 Personal history of nicotine dependence
CPT/HCPCS: 29881; J0131; J0165; J0736; J1100; J1171; J1885; J2003; J2250; J2405; J2704; J2795; J3010

== ENCOUNTER → 2025-03-25 07:42 | Outpatient (BNV) | payer MEDICARE, MEDICAID, SELFPAY | PROVIDERS: PCP Internal Medicine; Visit Provider Orthopaedic Surgery | DX: S83.242A Other tear of medial meniscus, current injury, left knee, initial encounter (principal) | CPT/HCPCS: 29881 ==